=== PATIENT | female | born 1955 | race Caucasian/White ===

== ENCOUNTER 2024-11-05 07:52 | Outpatient (CLI) | payer MEDICARE, SELFPAY ==
--- OUTSIDE RECORDS SUMMARY | 2024-11-05 08:08 | XMS_ITS | Encounter Summary ---
Author Organization [facility] Address [address] [place] [address] Care Team Providers Care Equipment Superintendent Name Role Phone Jean Marie Churchill MD, Ginny Dong Primary Care Provider Elicia vailable Encounter Details Date Type Department Care Team (Latest Contact Info) Description 05/29/2007 Outpatient Historical HIS [facility] RAJ Rojo Jr., Ginny Dong MD NO ADDRESS ON FILE Other Screening Mammogram Social History Tobacco Use Types Packs/Day Years Used Date Smoking Tobacco: Never Assessed Comments Unknown Sex and Gender Information Value Date Recorded Sex Assigned at Not on file Legal Sex Female 3:53 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 Gender Identity Not on file Sexual Orientation Not on file documented as of this encounter Plan of Treatment Not on file documented as of this encounter Procedures Procedure Name Priority Date/Time Associated Diagnosis Comments MAMMO SCREEN BILAT W OR WO CAD Timed Study 05/29/2007 10:23 AM CDT documented in this encounter Results * MAMMO DIGITAL SCREEN BILAT (05/29/2007 10:23 AM CDT) Anatomical Region Laterality Modality Breast Bilateral Other 05/29/2007 10:2 3 AM CDT Narrative 05/29/2007 6:54 PM CDT [facility] [address], [place] [address] Admit Date: 05/29/2007 GRZEGORZ MARSHALL Sex: F Admit Prov: GINNY ROJO Date: 1955 Primary Care Prov: VARINDER FREIRE CMRN: [id number] Room: [facility] SSN: [id number] IMAGING SERVICES Ordering Prov: GINNY ROJO Accession Number: [id number] Interpretation BILATERAL SCREENING DIGITAL MAMMOGRAMS WITH COMPUTER ASSISTED DIAGNOSIS, 05/29/2007 Findings: The parenchyma is moderately dense bilaterally. There is no mass, malignant calcification, lymphadenopathy or other sign of malignancy. Summary: No mammographic evidence of malignancy. No change since 02/2006. Assessment BIRADS: 1-Negative Recommendation: Normal interval follow-up Dictated by: IZAIAH RANGEL Electronically signed by: IZAIAH RANGEL 05/29/2007 18:54 Transcribed: 05/29/2007 16:28 DKT Procedure Note Izaiah Rangel MD - 05/29/2007 [facility] [address] [place], [place] [address] Admit Date: 05/29/2007 GRZEGORZ MARSHALL Sex: F Admit Prov: GINNY ROJO Date: 1955 Primary Care Prov: VARINDER FREIRE CMRN: [id number] Room: [facility] SSN: [id number] IMAGING SERVICES Ordering Prov: GINNY ROJO Interpretation BILATERAL SCREENING DIGITAL MAMMOGRAMS WITH COMPUTER ASSISTEDDIAGNOSIS, 05/29/2007 Findings: The parenchyma is moderately dense bilaterally. There is nomass, malignant calcification, lymphadenopathy or other sign ofmalignancy. Summary: No mammographic evidence of malignancy. No change since02/2006. Assessment BIRADS: 1-Negative Recommendation: Normal interval follow-up Dictated by: IZAIAH RANGEL Electronically signed by: IZAIAH RANGEL 05/29/2007 18:54 Transcribed: 05/29/2007 16:28 DKT us Ginny Rojo Jr., MD MAMMO ORDERABLES Final Res ult documented in this encounter Visit Diagnoses Diagnosis Other screening mammogram documented in this encounter Care Teams Equipment Superintendent Relationship Specialty Start Date End Date Ginny Rojo Jr., MD NO ADDRESS ON FILE PCP - General 02/19/03 documented as of this encounter
--- OUTSIDE RECORDS SUMMARY | 2024-11-05 08:08 | XMS_ITS | Encounter Summary ---
Author Organization [facility] Address [address] [place] [address] Care Team Providers Care Freight Shipping Agent Name Role Phone Jean Marie Churchill MD, Ginny Dong Primary Care Provider Elicia vailable Encounter Details Date Type Department Care Team (Latest Contact Info) Description 02/17/2006 Outpatient Historical HIS [facility] Ginny Dubose Jr., MD NO ADDRESS ON FILE Other Screening Mammogram (Primary Dx) Social History Tobacco Use Types Packs/Day Years Used Date Smoking Tobacco: Never Assessed Comments Unknown Sex and Gender Information Value Date Recorded Sex Assigned at Not on file Legal Sex Female 3:53 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
--- OUTSIDE RECORDS SUMMARY | 2024-11-05 08:08 | XMS_ITS | Clinical Summary ---
Author Organization [facility] field Address [address] [place] [phone] Phone Care Team Providers Care Fitness Consultant Name Role Phone Jean Marie Churchill MD, Remedios Dong Primary Care Provider Elicia vailable Allergies No known active allergies Medications esomeprazole (NEXIUM) 40 mg Capsule, Delayed Release(E.C.) Take 40 mg by mouth daily before breakfast. Active phentermine (ADIPEX P) 37.5 mg tablet 03/26/2017 Active dexlansoprazole (DEXILANT) 60 mg Delayed Release capsule Take 60 mg by mouth daily. Active Active Problems Problem Noted Date Diagnosed Date NAFLD (nonalcoholic fatty liver disease) 014 Overview (04/21/2013): Fat infilitration of MRCP done to evaluate for presence of retained CBD stone GERD (gastroesophageal reflux disease) 3 S/P laparoscopic cholecystectomy for gallstones 01/08/2013 Overview (04/21/2013): MRCP 01/2013 shows no sig biliary dilation or evidence for retained CBD stone Obesity 01/08/2013 Functional dyspepsia 01/06/2013 Overview (04/21/2013): EGD unrevealing. MRCP shows no evidence to suggest retained CBD stone. Functional nausea and vomiting 01/06/2013 Overview (04/21/2013): EGD unrevealing, MRCP shows NAFLD but no evidence for retained CBD stone or other structural/inflammatory explanation for symptoms. Personal history of colonic polyps 1.2 cm adenom a in 06/200401/06/2013 Overview (01/06/2013): Last follow up 10/2010 showed 4 mm hyperplastic rectal polyp. 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 Gender Identity Not on file Sexual Orientation Not on file Occupation Industry Job Start Date Job End Date Not on file Not on file Not on file Not on file Last Filed Vital Signs Vital Sign Reading Time Taken Comments Blood Pressure 111/82 06/01/2017 11:06 AM CDT Pulse 83 06/01/2017 11:06 AM CDT Temperature 36.2 C (97.1 F) 06/01/2017 10:55 AM CDT Respiratory Rate 18 06/01/2017 11:06 AM CDT Oxygen Saturation 99% 06/01/2017 11:06 AM CDT Inhaled Oxygen Concentration - - Weight 102.5 kg (226 lb) 05/31/2017 1:27 PM CDT Height 167.6 cm (5' 6) 05/31/2017 1:27 PM CDT Body Mass Index 36.48 05/31/2017 1:27 PM CDT Plan of Treatment Health Maintenance Due Date Last Done Comments DTAP/TDAP/TD VACCINES (1 - Tdap) 06/28/1975 FIT-DNA Q 3 years 2001 FIT/FOBT Q 1 year 2001 Flex Sig/CT Colonography Q 5 years 2001 PNEUMOCOCCAL VACCINE 50+ YEA RS (1 of 1 - PCV) 2006 ZOSTER VACCINE (1 of 2) 2006 BREAST CANCER SCREENING 05/28/2008 05/29/2007 RSV VACCINE (60+ or ) (1 - Risk 60-74 years 1-dose series) 2016 OSTEOPOROSIS SCREENING 2021 COLORECTAL SCREENING 06/01/2022 06/01/2017, 06/01/2017, 10/22/2010, Additional history exists Colorectal Cancer Screening 06/01/2022 INFLUENZA VACCINE (#1) 2024 Procedures Procedure Name Priority Date/Time Associated Diagnosis Comments ENDOSCOPY, COLON, SCREENING Routine 10/22/2010 MAMMO SCREEN BILAT W OR WO CAD Timed Study 05/29/2007 10:23 AM CDT from Last 3 Months or Most Recently Relevant to Health Maintenance Results * (ABNORMAL) ENDOSCOPY, COLON, SCREENING (10/22/2010) us Jacinto Mosqueda MD GI PROCEDURE ORDERABLES Edited [facility] * MAMMO DIGITAL SCREEN BILAT (05/29/2007 10:23 AM CDT) Anatomical Region Laterality Modality Breast Bilateral Other 05/29/2007 10:2 3 AM CDT Narrative 05/29/2007 6:54 PM CDT [facility] [address] [place], [place] [address] Admit Date: 05/29/2007 MARILYNCONNIE Sex: F Admit Prov: VALENTÍN ROJORYLEY Dong Date: 1955 Primary Care Prov: MOUNA VARINDER Early CMRN: [id number] Room: [facility] SSN: [id number] IMAGING SERVICES Ordering Prov: REMEDIOS ROJO Accession Number: [id number] Interpretation BILATERAL SCREENING DIGITAL MAMMOGRAMS WITH COMPUTER [...] Procedure Note Izaiah Rangel MD - 05/29/2007 [facility] [address] [place], [place] [address] Admit Date: 05/29/2007 CONNIE MARSHALL Sex: F Admit Prov: REMEDIOS ROJO Date: 1955 Primary Care Prov: VARINDER FREIRE CMRN: [id number] Room: [facility] SSN: [id number] IMAGING SERVICES Ordering Prov: REMEDIOS ROJO Letitia Interpretation BILATERAL SCREENING DIGITAL MAMMOGRAMS WITH COMPUTER ASSISTEDDIAGNOSIS, 05/29/2007 Findings: The parenchyma is moderately dense bilaterally. There is nomass, malignant calcification, lymphadenopathy or other sign ofmalignancy. Summary: No mammographic evidence of malignancy. No change since02/2006. Assessment BIRADS: 1-Negative Recommendation: Normal interval follow-up Dictated by: IZAIAH RANGEL Electronically signed by: IZAIAH RANGEL 05/29/2007 18:54 Transcribed: 05/29/2007 16:28 DKT Remedios Rojo Jr., MD MAMMO ORDERABLES Final Res ult from Last 3 Months or Most Recently Relevant to Health Maintenance Insurance [facility] BLUE ACCESS/TRUE BLUE PPO Advance Directives For more information, please contact: [phone] * Full Code (Latest Code Status on File) Date Activated Date Inactivated Comments 06/01/2017 9:50 AM 06/01/2017 1:25 PM * Full Code Date Activated Date Inactivated Comments 01/15/2013 10:08 AM 01/15/2013 2:28 PM Care Teams Fitness Consultant Relationship Specialty Start Date End Date Remedios Rojo Jr., MD NO ADDRESS ON FILE PCP - General 02/19/03
--- OUTSIDE RECORDS SUMMARY | 2024-11-05 08:08 | XMS_ITS | Encounter Summary ---
Author Organization [facility] Address [address] [place] [address] Care Team Providers Care Production Machinist Name Role Phone Jean Marie Churchill MD, Ginny Dong Primary Care Provider Elicia vailable Encounter Details Date Type Department Care Team (Latest Contact Info) Description 03/20/2004 Outpatient Historical HIS [facility] RAJ Aj Jr., Ginny Dong MD NO ADDRESS ON FILE SCREENING MAMM-MAILG NEOPL-OTHER (Primary Dx) Social History Tobacco Use Types Packs/Day Years Used Date Smoking Tobacco: Never Assessed Comments Unknown Sex and Gender Information Value Date Recorded Sex Assigned at Not on file Legal Sex Female 3:53 AM CLINICAL 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
--- OUTSIDE RECORDS SUMMARY | 2024-11-05 08:08 | XMS_ITS | Encounter Summary ---
Author Organization [facility] Address [address] [place] [address] Care Team Providers Care Relief Salesperson Name Role Phone Jean Marie Churchill MD, Ginny Dong Primary Care Provider Elicia vailable Encounter Details Date Type Department Care Team (Latest Contact Info) Description 02/19/2003 Outpatient Historical HIS [facility] RAJ Aj Jr., Ginny Dong MD NO ADDRESS ON FILE SCREENING MAMM-MAILG NEOPL-OTHER (Primary Dx) Social History Tobacco Use Types Packs/Day Years Used Date Smoking Tobacco: Never Assessed Comments Unknown Sex and Gender Information Value Date Recorded Sex Assigned at Not on file Legal Sex Female 3:53 AM NURSING ASSOC Gender Identity Not on file Sexual Orientation Not on file documented as of this encounter Plan of Treatment Not on file documented as of this encounter Visit Diagnoses Diagnosis Other screening mammogram- Primary documented in this encounter Care Teams Relief Salesperson Relationship Specialty Start Date End Date Ginny Aj Jr., MD NO ADDRESS ON FILE PCP - General 02/19/03 documented as of this encounter
--- OUTSIDE RECORDS SUMMARY | 2024-11-05 08:08 | XMS_ITS ---
Author Organization [facility] Address [address] [place] [address] Care Team Providers Care Border Patrol Officer Name Role Phone Charissa Raymundo NP Primary Care Provider [phone] Angel Montes De Oca MD Unavailable [phone] Active Problems Problem Noted Date Diagnosed Date Chest pain 04/09/2024 Assessment & Plan (04/09/2024 9:40 AM SECURITY TEST ENGINEER): EKG slightly changed from 1 month ago--frequent PVC's new, low voltage new. With symptoms, will be safe and get stress test. ASCVD risk score 7.7%. Palpitations may be contributing to sx, will need to consider MCT monitor. Hold Phentermine. Screening for colon cancer 02/08/2024 History of right breast cancer 03/16/2020 Overview (03/16/2020): Added automatically from request for surgery [id number] Breast asymmetry 02/14/2019 Overview (02/14/2019): Added automatically from request for surgery [id number] Scar contracture 02/14/2019 Overview (02/14/2019): Added automatically from request for surgery [id number] Bronchitis 01/08/2019 Cough 01/08/2019 Dysuria 01/08/2019 Knee pain 01/08/2019 Assessment & Plan (02/01/2024 4:17 PM SECURITY TEST ENGINEER): In need of knee replacement, needs to lose about 20 lbs first though per specialist. Will get updated labs, can trial Meloxicam if renal function in good shape. Shoulder pain 01/08/2019 Malignant neoplasm of breast 06/18/2018 Assessment & Plan (02/01/2024 4:16 PM SECURITY TEST ENGINEER): Patient has completed her 5 year surveillance and has been release from specialist. History of breast cancer 03/12/2018 Overview (03/12/2018): Added automatically from request for surgery [id number] Wasp sting 10/06/2016 NAFLD (nonalcoholic fatty liver disease) 014 Overview (01/08/2019): Overview: Fat infilitration of MRCP done to evaluate for presence of retained CBD stone GERD (gastroesophageal reflux disease) 3 Assessment & Plan (02/01/2024 4:15 PM SECURITY TEST ENGINEER): Stable on Omeprazole 10 mg daily Obesity 01/08/2013 S/P laparoscopic cholecystectomy 01/08/2013 Overview (01/08/2019): Overview: MRCP 01/2013 shows no sig biliary dilation or evidence for retained CBD stone Family history of colon cancer 01/06/2013 Functional dyspepsia 01/06/2013 Overview (01/08/2019): Overview: EGD unrevealing. MRCP shows no evidence to suggest retained CBD stone. Nausea and vomiting 01/06/2013 Overview (01/08/2019): Overview: EGD unrevealing, MRCP shows NAFLD but no evidence for retained CBD stone or other structural/inflammatory explanation for symptoms. Personal history of colonic polyps 01/06/2013 Overview (01/08/2019): Overview: Last follow up 10/2010 showed 4 mm hyperplastic rectal polyp. Repeat planned 10/2015 Current Treatment and Therapy Plans No current plan information found. Past Treatment and Therapy Plans No past plan information found. Lifetime Dose Tracking * Chemical Lifetime Dose Automatic Entry Manual Entr y Fluoro Time 2.8 minutes 2.8 minutes 0 minutes Air kerma at the reference point (Ka,r) 14 mGy 1 4 mGy 0 mGy
--- OUTSIDE RECORDS SUMMARY | 2024-11-05 08:08 | XMS_ITS | Clinical Summary ---
Author Organization [facility] Address [address] [place] [address] Care Team Providers Care Supervisor Benzene Refining Name Role Phone Charissa Raymundo NP Primary Care Provider [phone] Angel Montes De Oca MD Unavailable [phone] Allergies No known active allergies Medications DEXILANT 60 mg capsuleIndicati ons:Treatment of Non-Bleeding Gastric Disorder Take 60 mg by mouth every morning 8 Active acetaminophen (TYLENOL) 500 mg tablet Take 1 tablet (500 mg total) by mouth every 6 (six) hours as needed for pain. 30 tablet 2 9 Active ergocalciferol (VITAMIN D) 50,000 unit capsuleIndicati ons:Vitamin D Deficiency,on Monday Take 50,000 Units by mouth once a week Active multivitamin capsuleIndicati ons:Vitamin Deficiency Prevention Take 1 capsule by mouth daily before breakfast Active ibuprofen (ADVIL,MOTRIN) 600 mg tablet Take 1 tablet (600 mg total) by mouth every 6 (six) hours 30 tablet 1 Active Additional Information Patient not taking.Reported on 02/01/2024 HYDROcodone-paul taminophen (NORCO) 5-325 mg per tabletIndicatio ns:Pain Take 0.5-1 tablets by mouth every 6 (six) hours as needed for pain (for breakthrough pain only. Don't take this medication if you don't need it.) 20 tablet 1 Active Additional Information Patient not taking.Reported on 02/27/2024 docusate sodium (DOK) 100 mg tabletIndicatio ns:constipation Take 1 tablet (100 mg total) by mouth 2 (two) times a day as needed for constipation 30 tablet 1 Active Additional Information Patient not taking.Reported on 02/01/2024 gabapentin (NEURONTIN) 300 mg capsule Take 1 capsule (300 mg total) by mouth nightly 30 capsule 1 Active Additional Information Patient not taking.Reported on 02/27/2024 omeprazole (PriLOSEC) 10 mg capsule Take 1 capsule (10 mg total) by mouth daily Active bisacodyl EC (DULCOLAX EC) 5 mg EC tabletIndicatio ns:constipation Take 1 tablet (5 mg total) by mouth daily as needed for constipation 4 tablet 4 Active glucosam-chondr -ywd6-W3-X-olivia 750-625-1,000 mg-mg-unit tablet Take by mouth Active meloxicam (MOBIC) 15 mg tablet Take 1 tablet (15 mg total) by mouth daily Active Active Problems Problem Noted Date Diagnosed Date Chest pain 04/09/2024 Assessment & Plan (04/09/2024 9:40 AM ORNAMENTAL IRONWORKER): EKG slightly changed from 1 month ago--frequent PVC's new, low voltage new. With symptoms, will be safe and get stress test. ASCVD risk score 7.7%. Palpitations may be contributing to sx, will need to consider MCT monitor. Hold Phentermine. Screening for colon cancer 02/08/2024 History of right breast cancer 03/16/2020 Overview (03/16/2020): Added automatically from request for surgery [id number] Breast asymmetry 02/14/2019 Overview (02/14/2019): Added automatically from request for surgery [id number] Scar contracture 02/14/2019 Overview (02/14/2019): Added automatically from request for surgery [id number] Bronchitis 01/08/2019 Cough 01/08/2019 Dysuria 01/08/2019 Knee pain 01/08/2019 Assessment & Plan (02/01/2024 4:17 PM ORNAMENTAL IRONWORKER): In need of knee replacement, needs to lose about 20 lbs first though per specialist. Will get updated labs, can trial Meloxicam if renal function in good shape. Shoulder pain 01/08/2019 Malignant neoplasm of breast 06/18/2018 Assessment & Plan (02/01/2024 4:16 PM ORNAMENTAL IRONWORKER): Patient has completed her 5 year surveillance and has been release from specialist. History of breast cancer 03/12/2018 Overview (03/12/2018): Added automatically from request for surgery [id number] Wasp sting 10/06/2016 NAFLD (nonalcoholic fatty liver disease) 014 Overview (01/08/2019): Overview: Fat infilitration of MRCP done to evaluate for presence of retained CBD stone GERD (gastroesophageal reflux disease) 3 Assessment & Plan (02/01/2024 4:15 PM ORNAMENTAL IRONWORKER): Stable on Omeprazole 10 mg daily Obesity [...] mm hyperplastic rectal polyp. Repeat planned 10/2015 Immunizations Immunization Administration Dates Next Due Influenza, Quadrivalent, Split, Intramuscular Influenza, Trivalent, High D ose, Split, Preservative Free, Intramuscular 02/01/2024 Influenza, Unspecified 11/26/2017 Pneumococcal Conjugate Pcv20 06/09/2023 ZOSTER Recombinant 06/09/2023,07/01/2022 Surgical History Surgery Date Site/Laterality Comments BREAST BIOPSY 11/09/2017 Right LAPAROSCOPIC CHOLECYSTECTOMY 02/13/1999 - 02/13/2000 COLONOSCOPY 02/13/2018 - 02/12/2019 ENDOMETRIAL ABLATION W/ NOVASURE 0 - 02/13/2000 MASTECTOMY 02/13/2017 - 02/12/2018 FLUID DRAIN SOFT TISSUE 08/06/2018 N/A ABSCESS CATHETER INJECTION 08/17/2018 N/A ABSCESS CATHETER INJECTION 08/27/2018 N/A BREAST RECONSTRUCTION 12/14/2017 - 01/12/2018 UPPER GASTROINTESTINAL ENDOSCOPY 3 - 02/12/2013 MENISCUS SURGERY 02/13/2014 - 02/12/2015 Right Torn meniscus MENISCUS SURGERY 02/13/2018 - 02/12/2019 Left VAGINAL DELIVERY x2 Medical History Medical History Date Comments GERD (gastroesophageal reflux disease) Arthritis Overweight Breast cancer (HCC) both 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 Colon polyp Family History Medical History Relation Name Comments Throat cancer Brother 1 Liver cancer Brother 2 Lung cancer Father Lung cancer Maternal Grandfather Breast cancer Mother Breast cancer Sister 1 Colon cancer Sister 2 Cervical cancer Sister 3 Anesthesia problems Neg Hx Relation Name Status Comments Brother 1 Alive 53 when diagnos ed Brother 2 Alive just diagnosed at age 68 with liver cancer Father (Age 47) 45 when di agnosed Maternal Grandfather (Age 80) 80 when diagnosed Mother (Age 90) 85 when di agnosed Sister 1 Alive 69 when diagnos ed Sister 2 (Age 53) 52 when di agnosed Sister 3 (Age 66) 64 when di agnosed Social History Tobacco Use Types Packs/Day Years Used Date Smoking Tobacco: Never Smokeless Tobacco: Never Alcohol Use Standard Drinks/Week Comments Yes 0 (1 standard drink = 0.6 oz pur e alcohol) AUDIT-C Answer Date Recorded Q1: How often do you have a drink containing alcohol? 2-4 times a month 02/27/2024 Q2: How many drinks containi ng alcohol do you have on a typical day when you are drinking? Patient does not drink Q3: How often do you have si x or more drinks on one occasion? Never 02/27/2024 PHQ-2 Answer Date Recorded PHQ-2 Total Score (If total score is 3 or more points, staff should administer the PHQ-9) 0 04/09/2024 Personal Safety Answer Date Recorded Have you ever been in or are you currently in a harmful physical or emotional relationship or is someone making you feel afraid or unsafe? Denies 02/27/2024 Comments No Sex and Gender Information Value Date Recorded Sex Assigned at Not on file Legal Sex Female 3:04 PM ORNAMENTAL IRONWORKER Gender Identity Female 02/26/2019 4:52 PM ORNAMENTAL IRONWORKER Sexual Orientation Not on file Obstetrics History Last Filed Vital Signs Vital Sign Reading Time Taken Comments Blood Pressure 124/88 04/09/2024 8:55 AM ORNAMENTAL IRONWORKER Pulse 59 04/09/2024 8:55 AM ORNAMENTAL IRONWORKER Temperature 36.9 C (98.4 F) 04/09/2024 8:55 AM ORNAMENTAL IRONWORKER Respiratory Rate 17 02/27/2024 9:18 AM ORNAMENTAL IRONWORKER Oxygen Saturation 95% 04/09/2024 8:55 AM ORNAMENTAL IRONWORKER Inhaled Oxygen Concentration - - Weight 110.7 kg (244 lb) 04/09/2024 8:55 AM ORNAMENTAL IRONWORKER Height 167.6 cm (5' 6) 04/09/2024 8:55 AM ORNAMENTAL IRONWORKER Body Mass Index 39.38 04/09/2024 8:55 AM ORNAMENTAL IRONWORKER Plan of Treatment Health Maintenance Due Date Last Done Comments Osteoporosis Screening-Bone Density Scan 1955 DTaP/Tdap/Td Vaccine (1 - Tdap) 06/28/1967 Hepatitis B Screening 1974 Well Visit 65+ 2021 Covid-19 Vaccine (4 - 2024-2 6 season) 2024 12/17/2021, 05/19/2020, 04/27/2020 Influenza Vaccine (#1) 2024 , 11/26/2017, 11/25/2015 Fall Risk Assessment 02/26/2025 02/27/2024, 02/01/20 24 Depression Screening 04/09/2025 04/09/2024, 02/01/20 24 Colon Cancer Screening-Colonoscopy 02/26/2029 02/27/2024, 01/31/2021, 06/01/2017 Breast Cancer Screening-Mammogram Discontinued 008 Pneumococcal vaccine 65+ Completed 06/09/2023 Zoster Vaccine Completed 06/09/2023, 07/01/2022 Hepatitis C Screening Completed 02/26/2024 Colon Cancer Screening-CT Colonography Discontinued 02/27/2024 Colon Cancer Screening-DNA Stool Discontinued 02/26/19 Colon Cancer Screening-FIT Discontinued 02/27/2024 Colon Cancer Screening-Sigmoidoscopy Discontinued 02/13 Medical Devices Implanted Type Area Medical Writer Device Identifier Shelf Expiration Date Model / Serial / Lot Musculoskeletal Transplant [id number] Flexhd L20 Cm X W16 Cm Hydrate; Pliable Thk.8-1.7 Mm; Thick Graft - [id number] - [id number] Implanted:Qty: 1 on 01/12/2018 by Cristino Frazier II, MD at [facility] Other - see comments Left: Breast Musculoskeletal Transplant 03/17/2020 [id number] / [id number] / 0 Description:Flex HD Musculoskeletal Transplant [id number] Flexhd L20 Cm X W16 Cm Hydrate; Pliable Thk.8-1.7 Mm; Thick Graft - [id number] - [id number] Implanted:Qty: 1 on 01/12/2018 by Cristino Frazier II, MD at [facility] Other - see comments Right: Breast Musculoskeletal Transplant 03/17/2020 [id number] / [id number] / 0 Description:Flex HD [employer] Ssx-650 Natrelle Inspira Smooth Shell Surface Extra Full Profile Implant Latex Free - [id number] - [id number] Implanted:Qty: 1 on 10/31/2018 by Cristino rFazier II, MD at [facility] Right: Breast [employer] [id number] 05/28/2023 SSX-650 / [id number] / [employer] Ssx-650 Natrelle Inspira Smooth Shell Surface Extra Full Profile Implant Latex Free - [id number] - [id number] Implanted:Qty: 1 on 10/31/2018 by Cristino Frazier II, MD at [facility] Left: Breast [employer] [id number] 06/25/2023 SSX-650 / [id number] / Explanted Type Area Medical Writer Device Identifier Shelf Expiration Date Model / Serial / Lot [employer] 133mx-15-T -Natrelle Biocell Magna-Site [id number] Style 133mx With Tab Breast - [id number] - [id number] Implanted:Qty : 1 on 01/12/2018 by Cristino Frazier II, MD at [facility] Explanted:Qty : 1 on 03/13/2018 at [facility] Other - see comments Left: Breast [employer] 03/29/2021 133MX-15- T / [id number] / 0 Description:Tissue Spring Tester [employer] 133mx-15-T -Natrelle Bi[employer]ell Magna-Site [id number] Style 133mx With Tab Breast - [id number] - [id number] Implanted:Qty : 1 on 01/12/2018 by Cristino Frazier II, MD at [facility] Medicine Explanted:Qty : 1 on 03/13/2018 at [facility] Other - see comments Right: Breast [employer] 11/06/2021 133MX-15- T / [id number] / 0 Description:Tissue Spring Tester [employer] 133mx-14 Natrelle Biocell Magna-Site [id number] Style 133mx Textured Breast P - [id number] - [id number] Implanted:Qty : 1 on 03/13/2018 at [facility] Explanted:Qty : 1 on 10/31/2018 by Cristino Frazier II, MD at [facility] Left: Breast [employer] 06/06/2021 133MX-14 / [id number] / [employer] 133mx-14 Natrelle Biocell Magna-Site [id number] Style 133mx Textured Breast P - [id number] - [id number] Implanted:Qty : 1 on 03/13/2018 at [facility] Explanted:Qty : 1 on 10/31/2018 by Cristino Frazier II, MD at [facility] Right: Breast [employer] 09/15/2021 133MX-14 / [id number] / Procedures Procedure Name Priority Date/Time Associated Diagnosis Comments COLONOSCOPY 02/27/2024 8:23 AM ORNAMENTAL IRONWORKER HEPATITIS C ANTIBODY Routine 02/26/2024 11:02 AM ORNAMENTAL IRONWORKER Encounter for hepatitis C screening test for low risk patient from Last 3 Months or Most Recently Relevant to Health Maintenance Results * Colonoscopy (02/27/2024 8:23 AM ORNAMENTAL IRONWORKER) Anatomical Region Laterality Modality Other Narrative Procedure Note Jv Clemente MD - 02/27/2024 8:23 AM CST [facility] GI ENDOSCOPY Patient Name: Connie Marshall Procedure Date: 02/27/2024 8:23 AM Date of : 1955 Admit Type: Outpatient Age: 68 Gender: Female Attending MD: Jv Clemente M.D. Room: [facility] ENDOSCOPY ROOM 06 Note Status: Finalized Procedure: Colonoscopy Indications: High risk colon cancer surveillance: Personalhistory of colonic polyps, Family history of colon cancer Referring MD: Providers: Jv Clemente M.D. Medicines: Monitored Anesthesia Care Complications: No immediate complications. Estimated Blood Loss: Estimated blood loss: none. Procedure: Pre-Anesthesia Assessment: - Prior to the procedure, a History and Physicalwas performed, and patient medications and allergieswere reviewed. The risks and benefits of the procedureand the sedation options and risks were discussed withthe patient. All questions were answered and informed consent was obtained. Patient identification and proposed procedure were verified. After reviewingthe risks and benefits, the patient was deemed in satisfactory condition to undergo the procedure.The anesthesia plan was to use monitored anesthesiacare (MAC). Immediately prior to administration of medications, the patient was re-assessed foradequacy to receive sedatives. The heart rate, respiratory rate, oxygen saturations, blood pressure, adequacyof pulmonary ventilation, and response to care were monitored throughout the procedure. The physical status of the patient was re-assessed after the procedure. The benefits, risks and alternatives of theprocedure and sedation were discussed and informed consentwas obtained. All questions were answered. Please referto the signed informed consent document in the medical record. The scope was passed under direct vision.The Colonoscope was introduced through the anus and advanced to the cecum, identified by appendiceal orifice and ileocecal valve. The colonoscopy was performed without difficulty. The patient tolerated the procedure well. The quality of the bowel preparation was good. Scope withdrawal time was 13 minutes. Prep was administered in a split dose. Findings: The perianal and digital rectal examinations were normal. A diminutive polyp was found in the cecum. The polyp was removed witha cold biopsy forceps. Resection and retrieval were complete. A diminutive polyp was found in the ascending colon. The polyp was removed with a cold biopsy forceps. Resection and retrieval were complete. A diminutive polyp was found in the transverse colon. The polyp was removed with a cold biopsy forceps. Resection and retrieval were complete. Two polyps were found in the sigmoid colon. The polyps werediminutive in size. These polyps were removed with a cold biopsy forceps.Resection and retrieval were complete. Multiple medium-mouthed diverticula were found in the sigmoidcolon. Non-bleeding internal hemorrhoids were found during retroflexion. The hemorrhoids were small. The exam was otherwise without abnormality. Impression: - One diminutive polyp in the cecum, removed with a cold biopsy forceps. Resected and retrieved. - One diminutive polyp in the ascending colon,removed with a cold biopsy forceps. Resected andretrieved. - One diminutive polyp in the transverse colon, removed with a cold biopsy forceps. Resected and retrieved. - Two diminutive polyps in the sigmoid colon,removed with a cold biopsy forceps. Resected andretrieved. - Diverticulosis in the sigmoid colon. - Non-bleeding internal hemorrhoids. - The examination was otherwise normal. Recommendation: - Patient has a contact number available for emergencies. The signs and symptoms of potential delayed complications were discussed with thepatient. Return to normal activities tomorrow. Written discharge instructions were provided to thepatient. - High fiber diet. - Continue present medications. - Await pathology results. - Repeat colonoscopy in 5 years for surveillance. Jv Clemente M.D. Jv Clemente M.D. 02/27/2024 8:51:34 AM . Number of Addenda: 0 Note Initiated On: 02/27/2024 8:23 AM Recognized by the [employer] for promoting quality in endoscopy Jv Clemente MD ENDOSCOPY PROCEDURES Final Resul t * Hepatitis C antibody Blood (02/26/2024 11:02 AM ORNAMENTAL IRONWORKER) Hep C Ab Nonreactive Nonreactive Comment: Interpretive Data Nonreactive: Antibodies to HCV not detected. Does NOT exclude the possibility of recent exposure to HCV. Equivocal: Equivocal for HCV antibodies. Supplemental molecular testing will be automatically performed to determine infection status in accordance with current CDC screening recommendations. Reactive: Positive for HCV antibodies. This may represent current or past HCV infection. Supplemental molecular testing will be automatically performed to determine current infection status in accordance with current CDC screening recommendations. Interpretive data was last revised on 2019. Blood 02/26/2024 11:0 2 AM ORNAMENTAL IRONWORKER 02/26/2024 5:56 PM ORNAMENTAL IRONWORKER Charissa Raymundo NP LAB MICROBIOLOGY - GENERAL ORDER ZELDA Final Result [address] [id number] [address] Department [place] [address] from Last 3 Months or Most Recently Relevant to Health Maintenance Insurance ANTHEM ACCESS ANTHEM ACCESS CHOICE BLUE ACCESS OOS ANTHEM ACCESS Advance Directives For more information, please contact: [phone] * Full Code (Latest Code Status on File) Date Activated Date Inactivated Comments 08/27/2018 8:38 AM 08/27/2018 1:53 PM * Full Code Date Activated Date Inactivated Comments 08/17/2018 9:53 AM 08/17/2018 3:53 PM * Full Code Date Activated Date Inactivated Comments 01/12/2018 3:58 PM 01/14/2018 3:20 AM Care Teams Supervisor Benzene Refining Relationship Specialty Start Date End Date Charissa Raymundo NP [address] [facility] [address] [place] [address] PCP - General Family Medicine 02/01/24 Angel Montes De Oca MD [address] [facility] [address] [facility] [address] [place] [address] Referring Physician Orthopedic Surgery 02/01/24
--- OUTSIDE RECORDS SUMMARY | 2024-11-05 08:09 | XMS_ITS | Encounter Summary ---
Author Organization [facility] Healthcare Address [address] [place] [address] Care Team Providers Care Tool Lapper Hand Name Role Phone Anjali Mattson MD Primary Care Provider + Freddie PALUMBO MD, Cristino Valle Unavailable Charissa Raymundo NP Primary Care Provider [phone] Angel Montes De Oca MD Unavailable [phone] Encounter Details Date Type Department Care Team (Late st Contact Info) Description 08/13/2018 Telephone [facility] Radiology [address] [place] [address] Nasim Correa Social History Tobacco Use Types Packs/Day Years Used Date Smoking Tobacco: Never Smokeless Tobacco: Never Alcohol Use Standard Drinks/Week Comments Yes 0 (1 standard drink = 0.6 oz pur e alcohol) couple drinks a month Comments No Sex and Gender Information Value Date Recorded Sex Assigned at Not on file Legal Sex Female 3:04 PM ELECTRICAL APPLIANCE SERVICER Gender Identity Female 02/26/2019 4:52 PM ELECTRICAL APPLIANCE SERVICER Sexual Orientation Not on file documented as of this encounter Plan of Treatment Not on file documented as of this encounter Visit Diagnoses Not on filedocumented in this encounter Care Teams Tool Lapper Hand Relationship Specialty Start Date End Date Anjali Mattson MD PCP - General 11/02/17 01/31/24 Charissa Raymundo NP [address] [facility] [address] [place] [address] PCP - General Family Medicine 02/01/24 Cristino Frazier II, MD Surgeon Plastic Surgery 02/26/18 01/31/24 Angel Montes De Oca MD [address] [facility] [address] [place] [address] Referring Physician Orthopedic Surgery 02/01/24 documented as of this encounter
--- OUTSIDE RECORDS SUMMARY | 2024-11-05 08:09 | XMS_ITS | Clinical Summary ---
Author Organization [facility] Address [facility] [place] [address] Care Team Providers Care Cash Posting Representative Name Role Phone Unavailable Primary Care Provider Unavailabl e Social History Tobacco Use Types Packs/Day Years Used Date Smoking Tobacco: Never Assessed Comments Unknown Sex and Gender Information Value Date Recorded Sex Assigned at Not on file Legal Sex Female 6:26 PM CDT Gender Identity Not on file Sexual Orientation Not on file Plan of Treatment Health Maintenance Due Date Last Done Comments Colorectal Cancer Screening Colonoscopy (10 Years) 1955 Hepatitis C 1974 DTaP, Tdap and Td Vaccines ( 1 - Tdap) 06/28/1975 Mammogram Screening 1996 Pneumococcal Vaccine: 50+ Ye ars (1 of 1 - PCV) 2006 Zoster Vaccines (1 of 2) 2006 Dexa Scan (General) 2021 COVID-19 Vaccine ( - 2023-2 5 season) 2024 RSV Immunization or 60+ Years (1 - 1-dose 75+ series) 06/28/2031 Meningococcal B Vaccine Aged Out No l onger eligible based on patient's age to complete this topic Meningococcal Vaccine Aged Out No jacque cynthia eligible based on patient's age to complete this topic RSV Immunizations Under 20 Months Aged Out No longer eligible based on patient's age to complete this topic
[2024-11-05 08:53] LABS: Hematocrit 44.4 % (37.0-47.0); Hemoglobin 14.6 g/dL (12.0-15.0); Immature Granulocyte Percent A 0.6 % (0-0.5); Lymphocytes Absolute Auto 2.03 K/mm3 (0.9-3.2); Mean Corpuscular HGB Conc 32.9 g/dl (32-36); Mean Corpuscular Hemoglobin 29.7 pg (26-34); Mean Corpuscular Volume 90.4 fl (80-100); Nucleated Red Blood Cells Absolute Auto 0.000 K/mm3 (0.0-0.012); Nucleated Red Blood Cells Perc 0.0 % (0.0-0.2); Platelet Count Result 302 k/mm3 (150-375); Red Blood Count 4.91 M/mm3 (4.2-5.4); White Blood Count 7.7 K/mm3 (4.5-10.0)
[2024-11-05 09:23] LABS: Albumin Level 4.4 g/dL (3.5-5.1); Anion Gap 6 mmol/L (4-12); Blood Urea Nitrogen 11 mg/dL (7-17); Calcium 9.2 mg/dL (8.4-10.2); Carbon Dioxide 28 mmol/L (22-30); Chloride 102 mmol/L (98-107); Estimated Glomerular Filt Rate > 60; Glucose 91 mg/dL (65-110); Potassium 4.8 mmol/L (3.4-5.0); Sodium 136 mmol/L (137-145)
[2024-11-05 09:50] LABS: Hemoglobin A1C 5.4 % (<5.7)
== END 2024-11-05 07:53 | disposition home or self-care (01) ==
PROVIDERS: PCP Nurse Practitioner Family; Visit Provider Orthopaedic Surgery
DX: Z01.812 Encounter for preprocedural laboratory examination (principal); M17.0 Bilateral primary osteoarthritis of knee
CPT/HCPCS: 80048; 80307; 82040; 83036; 85025; 87081

== ENCOUNTER 2024-11-25 00:38 | Day surgery (SDC) | payer MEDICARE, SELFPAY ==
[2024-11-05 08:08] VITALS: BP 152/86; PULSE 86; RESP 16; TEMP 36.9; O2SAT 99; BMI 35.8
--- NOTE | 2024-11-05 08:29 | PC.NURSE ---
[facility] has started construction of its new state of the art ER which will open Spring 2026. With this, we anticipate parking may be a challenge for some our surgical patients and families. Parking spaces are limited but are available for all Surgical, obstetrics, and ER patients sharing this lot. If you arrive and find you are having a hard time finding a parking space, please note that we understand the challenges, please drive around the hospital and park near Hospital Entrance [address]. When you enter this entrance, you can ask a volunteer to direct or take you back to the surgical waiting area to check in. We appreciate everyone?s understanding of these expected challenges while we build for your future. Report to the Outpatient Waiting Room, entrance under the green pavilion located off [address], at time 0600am__ on date __11/25/24 . Planned Procedure Time: __0730am .? Time changes happen often and if your time is changed the preop area will call you the afternoon before. - You and your visitor will be asked to self-screen and do not enter if you have any COVID symptoms. Please call surgeon if you need to reschedule. - A mask is optional within the hospital at this time. Patients may have clear liquids (water, carbonated beverages, clear teas, apple juice) until 3 hours prior to surgery with a maximum of 20 ounces. - No food from midnight until time of surgery and no smoking, or chewing tobacco (or any form of nicotine). No chewing gum, candy or mints. (04:30am) Take only the following medications with a SIP of water on the morning of surgery: Hydrocodone if needed DO NOT STOP ANY OF YOUR OTHER PRESCRIPTION MEDICATIONS PRIOR TO SURGERY EXCEPT THE FOLLOWING Hold all vitamins and supplements for [address] Michaels Medications to discontinue per physician Tirzepatide for [address] Michaels, Date of last dose is 11/14/24 Medications to discontinue per physician Meloxicam, Aspirin, NSAIDS for [address] Michaels. Date to take last dose____11/17/24 Please no make-up, nail luxembourgish, hairspray, perfume, deodorant, or body powder the day of surgery.? No jewelry (including any body piercings) or valuables the day of surgery, leave them at home.? Please take a shower or bath the night before, or the morning of, surgery with an antibacterial soap GOLD DIAL.?HIBICLEANSE PER DR MICHAELS. Wear comfortable, loose fitting clothing.Bring overnight bag, walker, good shoes, cell phone/Chrgr - Jewelry must be removed prior to entering the operating room.? Rings and piercings that are not removed may be cut off. - The hospital will not accept responsibility for valuables.? - Please leave all valuables, including medications, at home the day of surgery. If you are going home after surgery, a licensed helper driver must drive you home.? - NO public transportation without another adult if you receive anesthesia. - We recommend that an adult stay with you for 24 hours following discharge. - We also recommend that you do not drive, make important decision, drink alcoholic beverages, or take any drugs that were not prescribed by your health care provider for at least 24 hours after your discharge time. Follow any additional instructions given to you from your surgeon. Telephone instructions given to ___Patient and asked if any additional questions and then verbalized understanding. Patient advised to call surgeon office or pre surgery nurse liaison [phone] if any additional questions.
[2024-11-25] VITALS (11 sets, daily range): BP systolic 116–134; BP diastolic 67–82; PULSE 77–94; RESP 12–16; TEMP 36.2–37.8; O2SAT 92–100; BMI 36.2
--- NOTE | ~2024-11-25 | XR_ITS ---
EXAMINATION: [id number] DATE: 11/25/2024 11:23 INDICATION: Postoperative evaluation following left total knee arthroplasty. TECHNIQUE: Anteroposterior and lateral views of the left knee were obtained. COMPARISON: 10/25/2024 FINDINGS: Left total knee arthroplasty without patellar resurfacing appears well seated and in near anatomic alignment. No fractures identified. Expected postoperative subcutaneous and intra-articular gas. IMPRESSION: 1. Left total knee arthroplasty, negative for postoperative purposes. Reviewed, dictated and finalized at location A.
--- OUTSIDE RECORDS SUMMARY | 2024-11-25 00:42 | XMS_ITS | Data Portability ---
Author Organization [facility] [employer], Main Office Address [address] [place] [address] Assessment No assessment recorded. Plan of Treatment Reminders Order Date Submit Date Provider Last Modified By Organization Details Last Modified Time Details Appointments None recorded. Lab vitamin D3, 25-hydroxy, serum 2022 023 [email or web address] [id number] Not available 3 08:21:34 BMP, serum or plasma 2022 023 [email or web address] Not available 3 08:21:33 lipid panel, serum 2022 023 [email or web address] Not available 3 08:21:34 Referral None recorded. Procedures None recorded. Surgeries None recorded. Imaging None recorded. Medication Orders prednisone 20 mg tablet 2022 023 [facility] [address], [address], 3 12:33:12 phentermine 37.5 mg tablet 2022 023 SAMAN[facility] [address], [address], 3 12:33:14 cephalexin 500 mg tablet 2022 023 [email or web address] [facility] [address], [address], 3 15:47:55 Patient TargetsNo targets recorded. Patient InstructionsNo instructions recorded. Reason for Referral None Reported. Results Created Date Observation Date Name Description Value Unit Range Abnormal Flag Note LastModifiedBy Organization Detail LastModifiedTime 09/03/1909/02/2020 rapid strep group A, throa t STREP A negati ve Not Available [address] , [place], [address], 09/02/2020 16:25:40 09/03/19 21 09/02/2020 rapid flu (A+B) Flu A negati ve Not Available [address] , [place], [address], 09/02/2020 16:24:42 09/03/19 21 09/02/2020 rapid flu (A+B) Flu B negati ve Not Available [address] , [place], [address], 09/02/2020 16:24:42 09/03/19 21 09/02/2020 FOLAT E, SERUM /PLAS MA folate 14.2 NG/mL 2.76- Not Available [facility] (Lab) [address] [place], [address], 09/02/2020 22:19:32 09/03/19 21 09/02/2020 VITAM IN B12 (AVERY NAVI ) vb12 797 pg/mL 239-93 1 Not Available [facility] (Lab) [address] [place], [address], 09/02/2020 22:19:31 09/03/19 21 09/02/2020 CBC W/O DIFFE DARIUSZ AL white blood cells 5.1 x10'3 /uL 4.2-10 .8 Not Available [facility] (Lab) [address] [place], [address], 09/02/2020 21:55:16 09/03/19 21 09/02/2020 CBC W/O DIFFE RENTI AL red blood cells 5.20 x10'6 /uL 3.80-5 .20 Not Available [facility] (Lab) [address] [place], [address], 09/02/2020 21:55:16 09/03/19 21 09/02/2020 CBC W/O DIFFE RENTI AL hemoglobin 14.1 g/dL 12.0-1 5.6 Not Available [facility] (Lab) [address] [place], [address], 09/02/2020 21:55:16 09/03/19 21 09/02/2020 CBC W/O DIFFE RENTI AL hematocrit 43.6 % 35.7-4 5.7 Not Available [facility] (Lab) [address] [place], [address], 09/02/2020 21:55:16 09/03/19 21 09/02/2020 CBC W/O DIFFE RENTI AL mean red cell volume 83.8 fL 82.0-9 9.0 Not Available [facility] (Lab) [address] [place], [address], 09/02/2020 21:55:16 09/03/1909/02/2020 CBC W/O DIFFE RENTI AL mean red cell hemoglobin 27.1 pg 27.0-3 3.0 Not Available [facility] (Lab) [address] [place], [address], 09/02/2020 21:55:16 09/03/19 21 09/02/2020 CBC W/O DIFFE RENTI AL mean RBC HGB concentratio n 32.3 g/dL 31.0-3 6.0 Not Available [facility] (Lab) [address] [place], [address], 09/02/2020 21:55:16 09/03/19 21 09/02/2020 CBC W/O DIFFE RENTI AL red cell distribution width 15.1 % 11.8-1 5.5 Not Available [facility] (Lab) [address] [place], [address], 09/02/2020 21:55:16 09/03/19 21 09/02/2020 CBC W/O DIFFE RENTI AL platelets 219 x10'3 /uL 150-40 0 Not Available [facility] (Lab) [address] [place], [address], 09/02/2020 21:55:16 09/03/19 21 09/02/2020 CBC W/O DIFFE RENTI AL mean platelet volume 9.7 fL 9.0-12 .4 Not Available [facility] (Lab) [address] [place], [address], 09/02/2020 21:55:16 09/03/19 21 09/02/2020 TSH thyroid-stim ulating hormone 2.920 uIU/m L 0.465- 4.680 Not Available [facility] (Lab) [address] [place], [address], 09/02/2020 21:40:17 09/03/19 21 09/02/2020 COMPR EHENS BENSON METAB OLIC PANEL sodium 138 mmol/ L 137-14 5 Not Available [facility] (Lab) [address] [place], [address], 09/02/2020 21:31:02 09/03/19 21 09/02/2020 COMPR EHENS BENSON METAB OLIC PANEL potassium 4.1 mmol/ L 3.5-5. 1 Not Available [facility] (Lab) [address] [place], [address], 09/02/2020 21:31:02 09/03/19 21 09/02/2020 COMPR EHENS BENSON METAB OLIC PANEL chloride 103 mmol/ L 98-107 Not Available [facility] (Lab) [address] [place], [address], 09/02/2020 21:31:02 09/03/19 21 09/02/2020 COMPR EHENS BENSON METAB OLIC PANEL carbon dioxide 25 mmol/ L 22-30 Not Available [facility] (Lab) [address] [place], [address], 09/02/2020 21:31:02 09/03/19 21 09/02/2020 COMPR EHENS BENSON METAB OLIC PANEL agap 14.1 mmol/ L 14-22 Not Available [facility] (Lab) [address] [place], [address], 09/02/2020 21:31:02 09/03/19 21 09/02/2020 COMPR EHENS BENSON METAB OLIC PANEL glucose 124 mg/dL 70-99 high Not Available [facility] (Lab) [address] [place], [address], 09/02/2020 21:31:02 09/03/19 21 09/02/2020 COMPR EHENS BENSON METAB OLIC PANEL BUN 15 mg/dL 8-19 Not Available [facility] (Lab) [address] [place], [address], 09/02/2020 21:31:02 09/03/19 21 09/02/2020 COMPR EHENS BENSON METAB OLIC PANEL creatinine 0.82 mg/dL 0.66-1 .25 Not Available [facility] (Lab) [address] [place], [address], 09/02/2020 21:31:02 09/03/19 21 09/02/2020 COMPR EHENS BENSON METAB OLIC PANEL GFR >60 Refer ence Range : [facility] GFR Healt hy Adult : >60 mL/mi n/1.7 3 m2 Chron ic Kidne y Disea se: 15-60 mL/mi n/1.7 3 m2 Kidne y Failu re: <15/m L/min /1.73 m2 www.n iddk. nih.g ov MDRD study equat ion hasn' t been valid ated in child lance <18 yrs of age, pregn ant women , the elder ly >85 yrs of age, or in some racia l or ethni c subgr oups, suc as Hispa nics. Outsi de the valid ated alexander eters , estim ated GFR is less accur ate requi ring clini brittany judgm ent on a case by case basis . Clini brittany inter preta tion for other races and ages must be made by the clini mary kate . Futhe rmore , any of th e limit ation s with the use of serum creat inine relat ed to nutri connie l statu s o r medic ation usage hasn' t accou nted for the MDRD Study equat ion. For perso ns < 18 yrs of age, a pedia tric GFR calcu lator can be locat ed on the [facility] websi te: https ://chaka aguayo.o vanessa/pr ofess ional s/kdo qi/gf r_cal culat or Not Available [facility] (Lab) [address] [place], [address], 09/02/2020 21:31:02 09/03/19 21 09/02/2020 COMPR EHENS BENSON METAB OLIC PANEL alkaline phosphatase 109 U/L 38-126 Not Available [facility] (Lab) [address] [place], [address], 09/02/2020 21:31:02 09/03/19 21 09/02/2020 COMPR EHENS BENSON METAB OLIC PANEL alanine aminotransfe rase 88 U/L 0-35 high Not Available [facility] (Lab) [address] [place], [address], 09/02/2020 21:31:02 09/03/19 21 09/02/2020 COMPR EHENS BENSON METAB OLIC PANEL aspartate aminotransfe rase 70 U/L 15-37 high Not Available [facility] (Lab) [address] [facility] [place], [address], 09/02/2020 21:31:02 09/03/19 21 09/02/2020 COMPR EHENS BENSON METAB OLIC PANEL bilirubin, total 0.50 mg/dL 0.20-1 .30 Not Available [facility] (Lab) [address] [place], [address], 09/02/2020 21:31:02 09/03/19 21 09/02/2020 COMPR EHENS BENSON METAB OLIC PANEL calcium 8.7 mg/dL 8.4-10 .2 Not Available [facility] (Lab) [address] [place], [address], 09/02/2020 21:31:02 09/03/19 21 09/02/2020 COMPR EHENS BENSON METAB OLIC PANEL total protein 7.7 g/dL 6.3-8. 2 Not Available [facility] (Lab) [address] [place], [address], 09/02/2020 21:31:02 09/03/19 21 09/02/2020 COMPR EHENS BENSON METAB OLIC PANEL albumin 4.4 g/dL 3.0-4. 4 Not Available [facility] (Lab) [address] [place], [address], 09/02/2020 21:31:02 09/03/19 21 09/02/2020 COMPR EHENS BENSON METAB OLIC PANEL globulin 3.3 g/dL 2.6-4. 2 Not Available [facility] (Lab) [address] [place], [address], 09/02/2020 21:31:02 09/03/19 21 09/02/2020 COMPR EHENS BENSON METAB OLIC PANEL A/G ratio 1.3 ratio 1.0-2. 0 Not Available [facility] (Lab) [address] [place], [address], 09/02/2020 21:31:02 09/03/19 21 09/02/2020 VITAM IN D 25-HY DROXY vd25oh 60.7 NG/mL 30-100 Vitam in D Statu s: Defic ient: <20 ng/mL Insuf ficie nt: 20-29 ng/mL Suffi cient : 30-10 0 ng/mL Not Available [facility] ([facility]) [address] [place], [address], 09/02/2020 21:29:01 Result Notes None recorded. Problems Name Problem SNOMED Code Status Onset Date Resolution Date Notes Provider Name and Address Organization Details Recorded Time Gastroesop hageal reflux disease 827239425 Active Not Available [facility] 3 06:57:22 Knee pain Active Not Available [facility] 3 06:57:23 Bronchitis 93269790 Active Not Available [facility] 3 06:57:23 Obesity 293680557 Active Not Available [facility] 3 06:57:23 Pain of shoulder region 39703113 Active Not Available [facility] 3 06:57:23 Dysuria 05965888 Active Not Available [facility] 3 06:57:23 Cough 39933787 Active Not Available [facility] 3 06:57:23 Wasp sting 261526607 Active 2016 Not Available [facility] 3 06:57:22 Malignant neoplasm of breast 670442016 Active 2018 Not Available [facility] 3 06:57:23 Malignant neoplasm of female breast 875730503 Active 2018 Not Available [facility] 3 06:57:23 Puncture wound of right upper arm 0850668028514 9109 Active 2022 DOLORES Charles [address] [facility] [address], [place], [address] , [place] [employer] [facility] 3 15:34:29 Pain of right knee joint 3300029447821 00 Active 2022 Anjali Mattson MD [address], [place], [address] , [facility] [employer] [facility] 3 15:52:02 Vitamin D deficiency 66917747 Active 2022 Anjali Mattson MD [address], [place], [address] , [facility] [employer] [facility] 3 15:56:01 Problem Notes None recorded. Procedures Surgical History Date Name Laterality Status Provider Name and Address Organization Details Recorded Time laparoscopic cholecystectomy completed Not Available [facility] 04/13/2022 06:52:45 Imaging Results None recorded. Procedure Notes None recorded. Medical Equipment None Reported. Allergies No known drug allergies Medications Name Sig Start Date Stop Date Status Note LastModified by Organization Details LastModified Time cyclobenzap rine 10 mg tablet 06/18 completed Not Available Not Available Not Available doxycycline hyclate 100 mg capsule TAKE 1 CAPSULE BY MOUTH TWICE A DAY UNTIL FINISHED 10/12 completed Not Available Not Available Not Available Carafate 100 mg/mL oral suspension 02/26 completed Not Available Not Available Not Available azithromyci n 250 mg tablet TAKE 2 TABLETS (500 MG) BY ORAL ROUTE ONCE DAILY FOR 1 DAY THEN 1 TABLET (250 MG) BY ORAL ROUTE ONCE DAILY FOR 4 DAYS active Not Available Not Available No t Available fluconazole 150 mg tablet 04/14 completed Not Available Not Available Not Available hydrocodone 5 mg-acetamin ophen 325 mg tablet PLEASE SEE ATTACHED FOR DETAILED DIRECTION S 10/12 completed Not Available Not Available Not Available sucralfate 1 gram tablet Take 1 tablet 3 times a day by oral route. 06/18 completed Not Available Not Available Not Available prednisone 20 mg tablet TAKE 2 TABLETS BY MOUTH EVERY DAY FOR 5 DAYS active Not Available Not Available No t Available phentermine 37.5 mg tablet TAKE 1 TABLET BY MOUTH EVERY DAY active Not Available Not Available No t Available ciprofloxac in 500 mg tablet 11/13 completed Not Available Not Available Not Available sulfamethox azole 800 mg-trimetho prim 160 mg tablet Take 1 tablet every 12 hours by oral route for 7 days. active Not Available Not Available No t Available omeprazole 40 mg capsule,del ayed release Take 1 capsule every day by oral route. active Not Available Not Available No t Available tramadol 50 mg tablet Take 1 tablet every 6 hours by oral route as needed. 06/18 completed Not Available Not Available Not Available oxycodone-a cetaminophe n 5 mg-325 mg tablet 06/18 completed Not Available Not Available Not Available amoxicillin 875 mg tablet Take 1 tablet every 12 hours by oral route for 7 days. 05/24 completed Not Available Not Available Not Available oxycodone-a cetaminophe n 10 mg-325 mg tablet Take 1 tablet every 6 hours by oral route. active Not Available Not Available No t Available lorazepam 2 mg tablet 06/18 completed Not Available Not Available Not Available cephalexin 500 mg capsule Take 1 capsule twice a day by oral route for 7 days. 08/11 completed Not Available Not Available Not Available pantoprazol e 40 mg tablet,adelina yed release 1 po qday 03/21 completed Not Available Not Available Not Available esomeprazol e magnesium 40 mg capsule,del ayed release TAKE 1 CAPSULE DAILY 09/23 completed Not Available Not Available Not Available nitrofurant oin macrocrysta l 100 mg capsule Take 1 capsule twice a day by oral route for 7 days. 02/21 completed Not Available Not Available Not Available nystatin 100,000 unit/gram topical cream 02/26 completed Not Available Not Available Not Available ranitidine 150 mg tablet TAKE 1 TABLET TWICE A DAY NEEDED FOR HEARTBURN 10/12 completed Not Available Not Available Not Available oxycodone 5 mg capsule 06/18 completed Not Available Not Available Not Available docusate sodium 100 mg capsule TAKE 1 TABLET BY MOUTH TWICE A DAY NEEDED FOR CONSTIPAT ION 10/12 completed Not Available Not Available Not Available gabapentin 300 mg capsule TAKE 1 CAPSULE BY MOUTH NIGHTLY 10/12 completed Not Available Not Available Not Available cephalexin 500 mg tablet Take 1 tablet twice a day by oral route for 10 days. 08/11 completed Not Available Not Available Not Available codeine 10 mg-guaifene sin 100 mg/5 mL oral liquid Take 10 mL 3 times a day by oral route as needed for 5 days. active Not Available Not Available No t Available ergocalcife rol (vitamin D2) 1,250 mcg (50,000 unit) capsule TAKE 1 CAPSULE EVERY WEEK 08/11 completed Not Available Not Available Not Available ibuprofen 600 mg tablet TAKE 1 TABLET BY MOUTH EVERY 6 HOURS 10/12 completed Not Available Not Available Not Available methylpredn isolone 4 mg tablets in a dose pack take po as directed on label 01/17 completed Not Available Not Available Not Available diazepam 5 mg tablet 06/18 completed Not Available Not Available Not Available Denta 5000 Plus 1.1 % cream 02/26 completed Not Available Not Available Not Available nitrofurant oin monohydrate /macrocryst als 100 mg capsule 10/06 completed Not Available Not Available Not Available ProAir HFA 90 mcg/actuati on aerosol inhaler Inhale 2 puffs every 4 hours by inhalatio n route. 05/24 completed Not Available Not Available Not Available Gavilyte-C 240 gram-22.72 gram-6.72 gram-5.84 gram oral solution 06/18 completed Not Available Not Available Not Available Dexilant 60 mg capsule, delayed release TAKE 1 CAPSULE DAILY 08/11 completed Not Available Not Available Not Available Vitals Date Recorded Body weight Body temperature Heart rate Oxygen saturation Oxygen saturation in Arterial blood by Pulse oximetry Systolic And Diastolic Provider Name and Address Organization Details Last Updated DateTime 3 977602. 09 g 98.1 [degF] 85 /min 97 % 97 % 132/88 mm[Hg] Meghan Kohli RN [facility] [employer] [facility] 3 15:23:59 Date Recorded Body weight Body temperature Heart rate Oxygen saturation Oxygen saturation in Arterial blood by Pulse oximetry Systolic And Diastolic Provider Name and Address Organization Details Last Updated DateTime 3 219406. 87 g 97.3 [degF] 89 /min 97 % 97 % 136/84 mm[Hg] Quyen Newton RN [facility] [employer] [facility] 3 15:31:21 Date Recorded Body mass index (BMI) Body height Oxygen saturation Oxygen saturation in Arterial blood by Pulse oximetry Heart rate Body temperature Body weight Systolic And Diastolic Provider Name and Address Organization Details Last Updated DateTime 1 37.1 kg/m2 167.64 cm 98 % 98 % 105 /min 96.9 [degF] 641032. 25 g 130/72 mm[Hg] Not Available [facility] 3 06:54:53 Date Recorded Body mass index (BMI) Body height Oxygen saturation Oxygen saturation in Arterial blood by Pulse oximetry Heart rate Body temperature Body weight Systolic And Diastolic Provider Name and Address Organization Details Last Updated DateTime 1 35.2 kg/m2 167.64 cm 94 % 94 % 81 /min 97.3 [degF] 47084.1 4 g 126/70 mm[Hg] Not Available [facility] 3 06:54:53 Social History Question Answer Notes LastModified by [employer] Details LastModified Time Tobacco Smoking Status Never Smoker Not Available [facility] 04/13/2022 06:52:31 What Is Your Level Of Caffeine Consumption? Occasional [id number] Information not available 04/13/2022 How Much Tobacco Do You Chew? None [id number] Information not available 04/13/2022 In The 14 Days Before Symptom Onset, Have You Had Close Contact With A Laboratory-confirm ed COVID-19 While That Case Was Ill? No [id number] Information not available 04/13/2022 In The 14 Days Before Symptom Onset, Have You Had Close Contact With A Person Who Is Under Investigation For COVID-19 While That Person Was Ill? No [id number] Information not available 04/13/2022 What Type Of Diet Are You Following? REGULAR [id number] Information not available 04/13/2022 What Was The Date Of Your Most Recent Tobacco Screening? 08/11/2022 [email or web address] Information not available 08/11/2022 Are You Passively Exposed To Smoke? No [id number] Information not available 04/13/2022 Sex: Unknown Functional Status Question Answer Note LastModified by [employer] Details LastModified Time What is your level of alcohol consumption? None [id number] Information not available 04/13/2022 Do you or have you ever used smokeless tobacco? Never used smokeless tobacco [id number] Information not available 04/13/2022 Do you or have you ever used e-cigarettes or vape? Never used electronic cigarettes [id number] Information not available 04/13/2022 What is your exercise level? None [id number] Information not available 04/13/2022 Mental Status Question Answer Note LastModified by Organization D etails LastModified Time Do you feel stressed (tense, restless, nervous, or anxious, or unable to sleep at night)? [id number] [email or web address] Information not available 07/12/2022 Family History Relationship Description Onset Age of this Age Resolved Age Notes LastModified by Organization Details LastModified Time Father Malignant neoplasm of lung [id number] Not available 04/13/2022 06:52:47 Mother Malignant neoplasm of breast [id number] [id number] Not available 04/13/2022 06:52:47 Sister Malignant neoplasm of breast [id number] Not available 04/13/2022 06:52:47 Sister Malignant neoplasm of colon 52 [id number].602 [id number] Not available 04/13/2022 06:52:47 Brother Malignant neoplasm of liver [id number].209 [id number] Not available 04/13/2022 06:52:47 Medical History No medical history recorded. Gynecological HistoryNo gynecological history recorded. Obstetrics History GPAL:G 0 P 0 0 0 0 Immunizations Vaccine Type Date Status Note Provider Nam e and Address Organization Details Recorded Time Influenza, split virus, quadrivalent, preservative 6 completed Not Available [facility] 04/13/2022 07:03:03 Past Encounters Encounter ID Performer Location Encounter Start Date Encounter Closed Date Diagnosis/Indication Diagnosis SNOMED-CT Code Diagnosis ICD10 Code Diagnosis IMO Codes Diagnosis Note [id number] Anjali Mattson MD [facility] [place] [address] [place] [address] 09/02/2020 00:00:00 09/02/2020 18:15:39 [id number] Anjali Mattson MD [facility] [place] [address] [place] [address] 10/12/2020 00:00:00 10/12/2020 08:58:26 [id number] DOLORES Charles [facility] [place] [address] [place] [address] 07/12/2022 15:14:48 07/12/2022 18:30:33 Puncture wound of right upper arm 8713100978 6332824 S41.131A New problemApp ears to be healing well. Since pt leaving town this weekend, will give rx for abx. Pt to start if area becomes more red, swollen, or shows any other s/s of infection. Advised to apply YAEL wrap to provide compressio n/support to the area. [id number] Anjali Mattson MD [facility] [place] [address] [facility] [address] [facility] [place] [address] 08/11/2022 15:24:16 08/11/2022 16:03:25 Adult health examination 459024533 Z00.00 Z13.[address] Mosqueda for colonoscop y, goes q5 years due to family hxGot shingrix vaccine #1, will return for #2Will get prevnar 20 at pharmacyFl u vaccine yearly, covid booster per cdc guidelines Pap normal 10/03, repeat in 2025She is 5 years s/p breast cancer, has been released by her oncologist , no f/u needed if no new s/sFasting labs orderedDEX A repeat next year Dietary ma nagement surveillance 230009411 Z71.3 restart phentermin e Malignant neoplasm of breast 220312030 C50.919 sees breast surgeon regularlyn o discrete mass but asymmetry noted on left upper breastreco mmended she schedule f/u with breast surgeon for breast exam Pain of ri ght knee joint 5779570151 67973 M25.561 appt with ortho in [place] at work hurt kneegrandd 's wedding this weekend adn she was on her feet for 3 days Vitamin D deficiency 347 95246 E55.9 Health Concerns Section Related Observation LastModified by Organization Detai ls LastModified Time None Recorded Concern Status LastModified by Organization Details LastModified Time None Recorded Advance Directives Directive None Recorded Payers Insurance Date Sequence Insurance Name Policy Number Policy Orr Covered Member ID Orr Member ID Guarantor Name 08/10/2022 1 [facility] (PPO) [id number] Harsh Marshall [id number] Connie Marshall 07/27/2023 1 [employer] [id number] Connie Marshall [id number] Connie Marshall 07/27/2023 1 [facility] (PPO) [id number] Connie Marshall [id number] Connie Marshall 07/27/2023 1 [employer] [id number] Connie Marshall [id number] Connie Marshall 07/27/2023 2 [employer] Connie Marshall [id number] Connie Marshall Notes Date Note Type Note Provider Name and Address Organization Details Recorded Time 07/12/2022 text/html 1. Pt in office for f/u on wound to right upper arm from about a week and a half ago. 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 Pt states her second foot got caught on the fence and she landed on a fallen tree branch. States the branch punctured her right upper arm. Pt states she and cleaned the wound with peroxide and iodine, then applied butterfly bandage to keep the wound closed. Pt states it's been doing ok, but she is concerned that the area around the wound is getting hard and a little red. States the area is tender, but most of the bruising is gone. Pt states she is worried about infection b/c she is traveling this weekend and will be camping. DOLORES Charles [address] [facility], [facility] [address], [place], [address], [employer] 07/12/2022 18:26:21 08/11/2022 text/html ROS as noted in the HPI here for wellness, having knee pain after fall in Mar at work and then being on her feet for days for granddaughter's wedding. Would like to restart phentermine, did well on it in the past. Has felt asymmetry left breast compared to right over past few days. no chest pain or sob Anjali Mattson MD [address], [facility] [address], [place], [address], [employer] [facility] 08/12/2022 12:33:40 OBGyn Episode No OBEpisode recorded.
--- OUTSIDE RECORDS SUMMARY | 2024-11-25 00:42 | XMS_ITS | Encounter Summary ---
Author Organization [facility] Healthcare Address [address] [place] [address] Care Team Providers Care Casino Enforcement Agent Name Role Phone Anjali Mattson MD Primary Care Provider + Freddie PALUMBO MD, Cristino Valle Unavailable Charissa Raymundo NP Primary Care Provider [phone] Angel Montes De Oca MD Unavailable [phone] Encounter Details Date Type Department Care Team (Late st Contact Info) Description 08/13/2018 Telephone [facility] Radiology [address] [place] [address] Nasim Correa Social History Tobacco Use Types Packs/Day Years Used Date Smoking Tobacco: Never Smokeless Tobacco: Never Alcohol Use Standard Drinks/Week Comments Yes 0 (1 standard drink = 0.6 oz pur e alcohol) couple drinks a month Comments No Sex and Gender Information Value Date Recorded Sex Assigned at Not on file Legal Sex Female 3:04 PM FRONT DESK CLERK Gender Identity Female 02/26/2019 4:52 PM FRONT DESK CLERK Sexual Orientation Not on file documented as of this encounter Plan of Treatment Not on file documented as of this encounter Visit Diagnoses Not on filedocumented in this encounter Care Teams Casino Enforcement Agent Relationship Specialty Start Date End Date Anjali Mattson MD PCP - General 11/02/17 01/31/24 Charissa Raymundo NP [address] [facility] [address] [place] [address] PCP - General Family Medicine 02/01/24 Cristino Frazier II, MD Surgeon Plastic Surgery 02/26/18 01/31/24 Angel Montes De Oca MD [address] [facility] [address] [place] [address] Referring Physician Orthopedic Surgery 02/01/24 documented as of this encounter
--- OUTSIDE RECORDS SUMMARY | 2024-11-25 00:42 | XMS_ITS | Encounter Summary ---
Author Organization [facility] Address [address] [place] [address] Care Team Providers Care Review Analyst Name Role Phone Jean Marie Churchill MD, Ginny Dong Primary Care Provider Elicia vailable Encounter Details Date Type Department Care Team (Latest Contact Info) Description 02/17/2006 Outpatient Historical HIS [facility] Ginny Dubose Jr., MD NO ADDRESS ON FILE Other Screening Mammogram (Primary Dx) Social History Tobacco Use Types Packs/Day Years Used Date Smoking Tobacco: Never Assessed Comments Unknown Sex and Gender Information Value Date Recorded Sex Assigned at Not on file Legal Sex Female 3:53 AM VOLUNTEER SERVICES COORDINATOR Gender Identity Not on file Sexual Orientation Not on file documented as of this encounter Plan of Treatment Not on file documented as of this encounter Visit Diagnoses Diagnosis Other screening mammogram- Primary documented in this encounter Care Teams Review Analyst Relationship Specialty Start Date End Date Ginny Aj Jr., MD NO ADDRESS ON FILE PCP - General 02/19/03 documented as of this encounter
--- OUTSIDE RECORDS SUMMARY | 2024-11-25 00:42 | XMS_ITS ---
Author Organization [facility] Address [address] [place] [address] Care Team Providers Care Set Illustrator Name Role Phone Charissa Raymundo NP Primary Care Provider [phone] Angel Montes De Oca MD Unavailable [phone] Active Problems Problem Noted Date Diagnosed Date Pain in the shoulder 11/13/2024 Pre-op exam 11/13/2024 Chest pain 04/09/2024 Assessment & Plan (04/09/2024 9:40 AM LEHR TENDER): EKG slightly changed from 1 month ago--frequent PVC's new, low voltage new. With symptoms, will be safe and get stress test. ASCVD risk score 7.7%. Palpitations may be contributing to sx, will need to consider MCT monitor. Hold Phentermine. Screening for colon cancer 02/08/2024 Arthralgia of right knee 08/11/2022 Vitamin D deficiency 08/11/2022 Puncture wound of right upper arm 07/12/2022 History of right breast cancer 03/16/2020 Overview (03/16/2020): Added automatically from request for surgery [id number] Breast asymmetry 02/14/2019 Overview (02/14/2019): Added automatically from request for surgery [id number] Scar contracture 02/14/2019 Overview (02/14/2019): Added automatically from request for surgery [id number] Bronchitis 01/08/2019 Cough 01/08/2019 Dysuria 01/08/2019 Knee pain 01/08/2019 Assessment & Plan (02/01/2024 4:17 PM LEHR TENDER): In need of knee replacement, needs to lose about 20 lbs first though per specialist. Will get updated labs, can trial Meloxicam if renal function in good shape. Shoulder pain 01/08/2019 Malignant neoplasm of breast 06/18/2018 Assessment & Plan (02/01/2024 4:16 PM LEHR TENDER): Patient has completed her 5 year surveillance and has been release from specialist. Malignant neoplasm of female breast 06/18/2018 History of breast cancer 03/12/2018 Overview (03/12/2018): Added automatically from request for surgery [id number] Wasp sting 10/06/2016 NAFLD (nonalcoholic fatty liver disease) 014 Overview (01/08/2019): Overview: Fat infilitration of MRCP done to evaluate for presence of retained CBD stone GERD (gastroesophageal reflux disease) 3 Assessment & Plan (02/01/2024 4:15 PM LEHR TENDER): Stable on Omeprazole 10 mg daily Obesity [...]
--- OUTSIDE RECORDS SUMMARY | 2024-11-25 00:42 | XMS_ITS | Clinical Summary ---
Author Organization [facility] Address [address] [place] [address] Care Team Providers Care Manager Long Term Care Name Role Phone Charissa Raymundo NP Primary Care Provider [phone] Angel Montes De Oca MD Unavailable [phone] Allergies No known active allergies Medications DEXILANT [...] 6 (six) hours 30 tablet 1 Active HYDROcodone-paul taminophen (NORCO) 5-325 mg per tabletIndicatio [...] for constipation 4 tablet 4 Active glucosam-chondr -uwz9-E6-T-olivia 750-625-1,000 mg-mg-unit tablet Take by mouth Active meloxicam (MOBIC) 15 mg tablet Take 1 tablet (15 mg total) by mouth daily Active tirzepatide (ZEPBOUND SUBQ) Inject under the skin Active Active Problems Problem Noted Date Diagnosed Date Pain in the shoulder 11/13/2024 Pre-op exam 11/13/2024 Chest pain 04/09/2024 Assessment & Plan (04/09/2024 9:40 AM PATTERN ASSEMBLER): EKG slightly changed from 1 month ago--frequent [...] (03/16/2020): Added automatically from request for surgery [id number] Breast asymmetry 02/14/2019 Overview (02/14/2019): Added automatically from request for surgery [id number] Scar contracture 02/14/2019 Overview (02/14/2019): Added automatically from request for surgery [id number] Bronchitis 01/08/2019 Cough 01/08/2019 Dysuria 01/08/2019 Knee pain 01/08/2019 Assessment & Plan (02/01/2024 4:17 PM PATTERN ASSEMBLER): In need of knee replacement, needs to lose about 20 lbs first though per specialist. Will get updated labs, can trial Meloxicam if renal function in good shape. Shoulder pain 01/08/2019 Malignant neoplasm of breast 06/18/2018 Assessment & Plan (02/01/2024 4:16 PM PATTERN ASSEMBLER): Patient has completed her 5 year surveillance and has been release from specialist. Malignant neoplasm of female breast 06/18/2018 History of breast cancer 03/12/2018 Overview (03/12/2018): Added automatically from request for surgery [id number] Wasp sting 10/06/2016 NAFLD (nonalcoholic fatty liver disease) 014 Overview (01/08/2019): Overview: Fat infilitration of MRCP done to evaluate for presence of retained CBD stone GERD (gastroesophageal reflux disease) 3 Assessment & Plan (02/01/2024 4:15 PM PATTERN ASSEMBLER): Stable on Omeprazole 10 mg daily Obesity [...] mm hyperplastic rectal polyp. Repeat planned 10/2015 Encounters Date Type Department Care Team Description 11/14/2024 Telephone [facility] Medical [facility] Primary Care at [address] [address] Charissa Raymundo NP 11/14/[address] [facility] Primary Care at [address] [address] ProviderTrevor MD 11/13/2024 2:30 PM CDT Office Visit [facility] Primary Care at [address] [address] Charissa Raymundo NP Pre-op exam (Primary Dx) from Last 3 Months Immunizations Immunization Administration Dates Next Due Influenza, [...] points, staff should administer the PHQ-9) 0 11/13/2024 Personal Safety Answer Date Recorded Have you ever been in or are you currently in a harmful physical or emotional relationship or is someone making you feel afraid or unsafe? Denies 02/27/2024 Comments No Sex and Gender Information Value Date Recorded Sex Assigned at Not on file Legal Sex Female 3:04 PM PATTERN ASSEMBLER Gender Identity Female 02/26/2019 4:52 PM PATTERN ASSEMBLER Sexual Orientation Not on file Obstetrics History Last Filed Vital Signs Vital Sign Reading Time Taken Comments Blood Pressure 130/84 11/13/2024 2:34 PM CDT Pulse 90 11/13/2024 2:34 PM CDT Temperature 36.2 C (97.1 F) 11/13/2024 2:34 PM CDT Respiratory Rate 17 02/27/2024 9:18 AM PATTERN ASSEMBLER Oxygen Saturation 97% 11/13/2024 2:34 PM CDT Inhaled Oxygen Concentration - - Weight 97.5 kg (215 lb) 11/13/2024 2:34 PM CDT Height 167.6 cm (5' 6) 11/13/2024 2:34 PM CDT Body Mass Index 34.7 11/13/2024 2:34 PM CDT Plan of Treatment Health Maintenance Due Date Last Done Comments Osteoporosis Screening-Bone Density Scan 1955 DTaP/Tdap/Td Vaccine (1 - Tdap) 06/28/1967 Hepatitis B Screening 1974 Well Visit 65+ 2021 Covid-19 Vaccine (4 - 2024-2 6 season) 2024 12/17/2021, 05/19/2020, 04/27/2020 Influenza Vaccine (#1) 2024 , 11/26/2017, 11/25/2015 Depression Screening 11/13/2025 11/13/2024, 04/09/2024, 02/01/2024 Fall Risk Assessment 11/13/2025 11/13/2024, 02/27/2024, 02/01/2024 Colon Cancer Screening-Colonoscopy 02/26/2029 02/27/2024, 01/31/2021, 06/01/2017 Pneumococcal vaccine 65+ Completed 06/09/2023 Zoster Vaccine Completed 06/09/2023, 07/01/2022 Hepatitis C Screening Completed 02/26/2024 Colon Cancer Screening-CT Colonography Discontinued 02/27/2024 Colon Cancer Screening-DNA Stool Discontinued 02/26/19 Colon Cancer Screening-FIT Discontinued 02/27/2024 Colon Cancer Screening-Sigmoidoscopy Discontinued 02/13 Medical Devices Implanted Type Area Grocery Store Clerk Device Identifier Shelf Expiration Date Model / Serial / Lot Musculoskeletal Transplant [id number] Flexhd L20 Cm X W16 Cm Hydrate; Pliable Thk.8-1.7 Mm; Thick Graft - [id number] - [id number] Implanted:Qty: 1 on 01/12/2018 by Cristino Frazier II, MD at [facility] Other - see comments Left: Breast Musculoskeletal Transplant 03/17/2020 [id number] / [id number] / 0 Description:Flex HD Musculoskeletal Transplant [id number] Flexhd L20 Cm X W16 Cm Hydrate; Pliable Thk.8-1.7 Mm; Thick Graft - [id number] - [id number] Implanted:Qty: 1 on 01/12/2018 by Cristino Frazier II, MD at [facility] Other - see comments Right: Breast Musculoskeletal Transplant 03/17/2020 [id number] / [id number] / 0 Description:Flex HD [employer] Ssx-650 Natrelle Inspira Smooth Shell Surface Extra Full Profile Implant Latex Free - [id number] - [id number] Implanted:Qty: 1 on 10/31/2018 by Cristino Frazier II, MD at [facility] Right: Breast [employer] [id number] 05/28/2023 SSX-650 / [id number] / [employer] Ssx-650 Natrelle Inspira Smooth Shell Surface Extra Full Profile Implant Latex Free - [id number] - [id number] Implanted:Qty: 1 on 10/31/2018 by Cristino Frazier II, MD at [facility] Left: Breast [employer] [id number] 06/25/2023 SSX-650 / [id number] / Explanted Type Area Grocery Store Clerk Device Identifier Shelf Expiration Date Model / Serial / Lot [employer] 133mx-15-T -Natrelle Biocell Magna-Site [id number] Style 133mx With Tab Breast - [id number] - [id number] Implanted:Qty : 1 on 01/12/2018 by Cristino Frazier II, MD at [facility] Explanted:Qty : 1 on 03/13/2018 at [facility] Other - see comments Left: Breast [employer] 03/29/2021 133MX-15- T / [id number] / 0 Description:Tissue Secondary History Teacher [employer] 133mx-15-T -Natrelle Biocell Magna-Site [id number] Style 133mx With Tab Breast - [id number] - [id number] Implanted:Qty : 1 on 01/12/2018 by Cristino Frazier II, MD at [facility] Explanted:Qty : 1 on 03/13/2018 at [facility] Other - see comments Right: Breast [employer] 11/06/2021 133MX-15- T / [id number] / 0 Description:Tissue Secondary History Teacher [employer] 133mx-14 Natrelle Biocell Magna-Site [id number] Style 133mx Textured Breast P - [id number] - [id number] Implanted:Qty : 1 on 03/13/2018 at [facility] Explanted:Qty : 1 on 10/31/2018 by Cristino Frazier II, MD at [facility] Left: Breast [employer] 06/06/2021 133MX-14 / [id number] / [employer] 133mx-14 Natrelle Biocell Magna-Site [id number] Style 133mx Textured Breast P - [id number] - [id number] Implanted:Qty : 1 on 03/13/2018 at [facility] Explanted:Qty : 1 on 10/31/2018 by Cristino Frazier II, MD at [facility] Right: Breast [employer] 09/15/2021 133MX-14 / [id number] / Procedures Procedure Name Priority Date/Time Associated Diagnosis Comments HEMOGLOBIN A1C Routine 11/14/2024 8:55 AM CDT GLUCOSE Routine 11/14/2024 8:54 AM CDT CMP Routine 11/14/2024 8:53 AM CDT CBC WITH DIFFERENTIAL Routine 11/14/2024 8:49 AM CDT ECG 12-LEAD Routine 11/13/2024 3:31 PM CDT Pre-op exam COLONOSCOPY 02/27/2024 8:23 AM PATTERN ASSEMBLER HEPATITIS C ANTIBODY Routine 02/26/2024 11:02 AM PATTERN ASSEMBLER Encounter for hepatitis C screening test for low risk patient from Last 3 Months or Most Recently Relevant to Health Maintenance Results * Hemoglobin A1c (11/14/2024 8:55 AM CDT) Blood us Historical Provider LAB BLOOD ORDERABLES Melisa l Result EXTERNAL LAB * Glucose (11/14/2024 8:54 AM CDT) us Historical Provider LAB BLOOD ORDERABLES Melisa l Result EXTERNAL LAB * CMP (11/14/2024 8:53 AM CDT) Historical Provider LAB BLOOD ORDERABLES Melisa l Result Performing Organization Address City/[facility] Co de Phone Number EXTERNAL LAB * CBC with Differential (11/14/2024 8:49 AM CDT) Historical Provider LAB BLOOD ORDERABLES Melisa l Result Performing Organization Address [facility] Co de Phone Number EXTERNAL LAB * ECG 12-LEAD (11/13/2024 3:31 PM CDT) Narrative Charissa Raymundo NP - 11/13/2024 3:31 PM CDT Charissa Raymundo NP 11/13/2024 3:32 PM ECG 12 lead Date/Time: 11/13/2024 3:31 PM Performed by: Charissa Raymundo NP Authorized by: Charissa Raymundo NP Comparison: compared with previous ECG Rhythm: sinus rhythm Rate: normal QRS axis: normal ST Segments: ST segments normal T Waves: T waves normal Clinical impression: low voltage Charissa Raymundo NP ECG ORDERABLES Edited Result - Final * Colonoscopy (02/27/2024 8:23 AM PATTERN ASSEMBLER) Anatomical Region Laterality Modality Other Narrative Procedure Note Jv Clemente MD - 02/27/2024 8:23 AM CST [facility] GI ENDOSCOPY Patient Name: Connie Marshall Procedure Date: 02/27/2024 8:23 AM Date of : 1955 Admit Type: Outpatient Age: 68 Gender: Female Attending MD: Jv Clemente M.D. Room: [facility] ENDOSCOPY ROOM 06 Note Status: Finalized Procedure: [...] On: 02/27/2024 8:23 AM Recognized by the [employer] for promoting quality in endoscopy us Jv Clemente MD ENDOSCOPY PROCEDURES Final Resul t * Hepatitis C antibody Blood (02/26/2024 11:02 AM PATTERN ASSEMBLER) Hep C Ab Nonreactive Nonreactive Comment: Interpretive [...] on 2019. Blood 02/26/2024 11:0 2 AM PATTERN ASSEMBLER 02/26/2024 5:56 PM PATTERN ASSEMBLER Charissa Raymundo NP LAB MICROBIOLOGY - GENERAL ORDER ZELDA Final Result [address] Department [place] [address] from Last 3 Months or Most Recently Relevant to Health Maintenance Insurance Luminary Micro ACCESS [employer] ACCESS CHOICE [place]osk [employer] [facility] MED[facility] ADVANTAGE [facility] Address: [address] [address] [place] [address] Advance Directives For more information, please contact: [phone] * Full Code (Latest Code Status on File) Date Activated Date Inactivated Comments 08/27/2018 8:38 AM 08/27/2018 1:53 PM * Full Code Date Activated Date Inactivated Comments 08/17/2018 9:53 AM 08/17/2018 3:53 PM * Full Code Date Activated Date Inactivated Comments 01/12/2018 3:58 PM 01/14/2018 3:20 AM Care Teams Manager Long Term Care Relationship Specialty Start Date End Date Charissa Raymundo NP [address] [facility] [address] [place] [address] PCP - General Family Medicine 02/01/24 Angel Montes De Oca MD [address] [facility] [address] [place] [address] Referring Physician Orthopedic Surgery 02/01/24
--- OUTSIDE RECORDS SUMMARY | 2024-11-25 00:42 | XMS_ITS | Clinical Summary ---
Author Organization [facility] field Address [address] [place] [address] Phone Care Team Providers Care Boarding Kennel Or Cattery Operator Name Role Phone Jean Marie Churchill MD, [...] on file Legal Sex Female 3:53 AM DIRECTOR STAFFING Gender Identity Not on file Sexual Orientation [...] AM CDT Narrative 05/29/2007 6:54 PM CDT [facility] [address] [place], [place] [address] Admit Date: 05/29/2007 MARILYNCONNIE Sex: F Admit Prov: VALENTÍN ROJORYLEY Dong Date: 1955 Primary Care Prov: MOUNA VARINDER Early CMRN: [id number] Room: [facility] SSN: [id number] IMAGING SERVICES Ordering Prov: REMEDIOS ROJO Accession Number: [id number] Interpretation BILATERAL SCREENING DIGITAL MAMMOGRAMS WITH COMPUTER [...] Procedure Note Izaiah Rangel MD - 05/29/2007 [facility] [address] [place], [place] [address] Admit Date: 05/29/2007 CONNIE MARSHALL Sex: F Admit Prov: REMEDIOS ROJO Date: 1955 Primary Care Prov: VARINDER FREIRE CMRN: [id number] Room: [facility] SSN: [id number] IMAGING SERVICES Ordering Prov: REMEDIOS ROJO Letitia [...] Most Recently Relevant to Health Maintenance Insurance [facility] BLUE ACCESS/TRUE BLUE PPO Advance Directives For more information, please contact: [phone] * Full Code (Latest Code Status on File) Date Activated Date Inactivated Comments 06/01/2017 9:50 AM 06/01/2017 1:25 PM * Full Code Date Activated Date Inactivated Comments 01/15/2013 10:08 AM 01/15/2013 2:28 PM Care Teams Boarding Kennel Or Cattery Operator Relationship Specialty Start Date End Date Remedios Rojo Jr., MD NO ADDRESS ON FILE PCP - General 02/19/03
--- OUTSIDE RECORDS SUMMARY | 2024-11-25 00:42 | XMS_ITS | Encounter Summary ---
Author Organization [facility] Address [address] [place] [address] Care Team Providers Care Pad Assembler Name Role Phone Jean Marie Churchill MD, Ginny Dong Primary Care Provider Elicia vailable Encounter Details Date Type Department Care Team (Latest Contact Info) Description 03/20/2004 Outpatient Historical HIS [facility] RAJ Aj Jr., Ginny Dong MD NO ADDRESS ON FILE SCREENING MAMM-MAILG NEOPL-OTHER (Primary Dx) Social History Tobacco Use Types Packs/Day Years Used Date Smoking Tobacco: Never Assessed Comments Unknown Sex and Gender Information Value Date Recorded Sex Assigned at Not on file Legal Sex Female 3:53 AM SCHOOL PHYSICAL THERAPIST Gender Identity Not on file Sexual Orientation Not on file documented as of this encounter Plan of Treatment Not on file documented as of this encounter Visit Diagnoses Diagnosis Other screening mammogram- Primary documented in this encounter Care Teams Pad Assembler Relationship Specialty Start Date End Date Ginny Aj Jr., MD NO ADDRESS ON FILE PCP - General 02/19/03 documented as of this encounter
--- OUTSIDE RECORDS SUMMARY | 2024-11-25 00:42 | XMS_ITS | Encounter Summary ---
Author Organization [facility] Address [address] [place] [address] Care Team Providers Care Data Entry Manager Name Role Phone Jean Marie Churchill MD, Ginny Dong Primary Care Provider Elicia vailable Encounter Details Date Type Department Care Team (Latest Contact Info) Description 02/19/2003 Outpatient Historical HIS [facility] RAJ Aj Jr., Ginny Dong MD NO ADDRESS ON FILE SCREENING MAMM-MAILG NEOPL-OTHER (Primary Dx) Social History Tobacco Use Types Packs/Day Years Used Date Smoking Tobacco: Never Assessed Comments Unknown Sex and Gender Information Value Date Recorded Sex Assigned at Not on file Legal Sex Female 3:53 AM RAILROAD CAR REPAIRMAN Gender Identity Not on file Sexual Orientation Not on file documented as of this encounter Plan of Treatment Not on file documented as of this encounter Visit Diagnoses Diagnosis Other screening mammogram- Primary documented in this encounter Care Teams Data Entry Manager Relationship Specialty Start Date End Date Ginny Aj Jr., MD NO ADDRESS ON FILE PCP - General 02/19/03 documented as of this encounter
--- OUTSIDE RECORDS SUMMARY | 2024-11-25 00:42 | XMS_ITS | Encounter Summary ---
Author Organization [facility] Address [address] [place] [address] Care Team Providers Care Pewter Fabricator Name Role Phone Jean Marie Churchill MD, Ginny Dong Primary Care Provider Leicia vailable Encounter Details Date Type Department Care Team (Latest Contact Info) Description 05/29/2007 Outpatient Historical HIS [facility] RAJ Rojo Jr., Ginny Dong MD NO ADDRESS ON FILE Other Screening Mammogram Social History Tobacco Use Types Packs/Day Years Used Date Smoking Tobacco: Never Assessed Comments Unknown Sex and Gender Information Value Date Recorded Sex Assigned at Not on file Legal Sex Female 3:53 AM SOFTWARE ENGINEER BACKEND Gender Identity Not on file Sexual Orientation [...] AM CDT Narrative 05/29/2007 6:54 PM CDT [facility] [address] [place], [place] [address] Admit Date: 05/29/2007 GRZEGORZ MARSHALL Sex: F Admit Prov: GINNY ROJO Date: 1955 Primary Care Prov: VARINDER FREIRE CMRN: [id number] Room: [facility] SSN: [id number] IMAGING SERVICES Ordering Prov: GINNY ROJO Accession Number: [id number] Interpretation BILATERAL SCREENING DIGITAL MAMMOGRAMS WITH COMPUTER [...] Procedure Note Izaiah Rangel MD - 05/29/2007 [facility] [address] [place] [place], [place] [address] Admit Date: 05/29/2007 GRZEGORZ MARSHALL Sex: F Admit Prov: GINNY ROJO Date: 1955 Primary Care Prov: VARINDER FREIRE CMRN: [id number] Room: [facility] SSN: [id number] IMAGING SERVICES Ordering Prov: GINNY ROJO Interpretation [...] mammogram documented in this encounter Care Teams Pewter Fabricator Relationship Specialty Start Date End Date Ginny Rojo Jr., MD NO ADDRESS ON FILE PCP - General 02/19/03 documented as of this encounter
--- OUTSIDE RECORDS SUMMARY | 2024-11-25 00:42 | XMS_ITS | Clinical Summary ---
Author Organization [facility] Address [facility] [place] [address] Care Team Providers Care Medication Reconciliation Technician Name Role Phone Unavailable Primary Care Provider [...] Vaccine ( - 2023-2 5 season) 2024 Influenza Adult (#1) 2024 RSV Immunization or 60+ Years (1 [...]
[2024-11-25] MEDS: ACETAMINOPHEN 500 MG TABLET 1000 MG PO (06:30)
[2024-11-25] MEDS: LACTATED RINGERS 1,000 ML 30 ML IV CONT ×2 (06:45→11:10)
[2024-11-25] MEDS: VANCOMYCIN 1,500 MG/NS 500 ML 1,500 MG/500 ML BAG 250 MG IVPB (06:50)
[2024-11-25] MEDS: TRANEXAMIC ACID 1,000MG/ISO100 1,000 MG/100 ML BAG 200 MG IVPB (06:50)
--- NOTE | 2024-11-25 07:11 | PM.IMHP ---
H&P: HPI History of Present Illness Date/Time: 11/25/24 07:11 Chief Complaint: Left and right knee pain Narrative: HPI Comments Details: Patient returns. She the had a cortisone shot both knees 2 months is this shot gave great relief on the right knee again but the left knee has been problematic for she is starting quite a bit pain. The previous injection in her left knee only gave her 2 months of relief and the final month was quite severe and meloxicam did not help. She complains that her knee feels unstable and she is fearful it will give way. If she twists on it she has severe pain. She has undergone 2 arthroscopic meniscus trimming so on the right knee 1 on the left knee in the past. She takes meloxicam off and on. She uses it primarily the month prior to her cortisone injection. She uses hydrocodone occasionally if her knee keeps her from sleeping. She has been working hard to lose weight. She has been taking Mounjaro injections to lose weight and has been very helpful. She is 5 ft 5 in in height. On February 23 of this year she weighed 256 lb with a BMI of 41.3. Today she weighs 211 lb which represents a 45 lb weight loss in her BMI is down to 35.1. She feels she is otherwise in excellent health. She has never smoked she has no history of any heart problems or shortness of breath. Patient has been considering left knee replacement and has decided that she would like to proceed with that. Her previous x-rays were reviewed which suggest at least moderately severe medial compartment osteoarthritis in both knees. X-rays X-rays today Stork views two views of each knee obtained today in the office and demonstrate on the left knee: The Advanced [id number] medial compartment osteoarthritis with suggestion of some bone wear medial margin of medial tibial plateau and distraction of the lateral compartment joint space to 9 mm. There is a 6 mm bony ossicle at the medial margin medial tibial plateau which I believe represents a fractured marginal osteophyte which does involve a little bit of the actual margin of medial to plateau large medial femoral osteophyte noted. Anatomic axis varus alignment 2? varus. The very similar pattern noted in the right knee but less severe as there remains 1 mm of medial joint space narrowing on the AP stork view right knee. Similar distraction of the lateral compartment joint space which measures 9.5 mm. Prominent medial tibial and femoral osteophyte noted. Physical examination On exam today she is a pleasant female in no acute distress. She is alert and oriented. She walks with minimal limp today. She appears younger than her stated age. She is 5 5 in night 211 lb BMI of 35.1. Left knee range of motion is 0-140 degrees. She has normal stability anterior to posterior and varus valgus. She did not have any obvious lateral laxity on exam today. She had a trace effusion. She had moderately severe medial joint line tenderness and pain with patellofemoral grind. No lateral joint line tenderness. She had full range of motion of left hip without discomfort. Negative Stinchfield maneuver. Five 5 abduction strength. Greater trochanter and iliotibial band nontender. 2+ dorsalis pedis pulse palpable absent posterior tibial. Normal sensation skin looks normal no lower extremity edema. Patient has range of motion of the right knee full extension to 140? also [facility] Past Medical History Medical History Primary osteoarthritis of right knee Surgical History Surgical History History of tooth extraction H/O breast reconstruction (~2019) H/O total mastectomy (~2018) H/O arthroscopic knee surgery Tristan knee Family History Family History Other Family history of malignant neoplasm Social History Social History (Updated 10/25/24 @ 09:20 by Bruna Diane CMA) Smoking status: Never smoker Second hand tobacco smoke exposure: Yes Alcohol intake: current Alcohol use details: 2 per month Substance use type: painkillers Other substance usage details: occasional hydrocodone if needed Do You Feel Safe in your Home?: Yes Lack of Transportation: No Lack of Food: Never True Current Housing: I Have Housing Concerned About Future Housing: No Difficulty Paying Gas/Electric Bills: No Difficulty Paying for Meds: No Currently Unemployed: No Education: High School Diploma/GED Difficulty w/ Childcare or Family Care: No Living arrangements: with family Additional living arrangements comments: Spiritual care concerns: No Meds Home Medications and Allergies Home Medications ?Medication ?Instructions ?Recorded ?Confirmed ?Type [id number] 1 tablet PO DAILY 02/26/24 11/25/24 History 750 mg-100 mg-125 mg-1.65 mg tablet (Glucosamine Chondroit Complx Advan) meloxicam 15 mg tablet 15 mg PO DAILY #30 tabs 02/26/24 11/25/24 Rx multivitamin (Daily Multi-Vitamin 1 tablet PO DAILY 02/26/24 11/25/24 History tablet) omeprazole 20 mg capsule,delayed 20 mg PO DAILY 02/26/24 11/05/24 History release hydrocodone 5 mg-acetaminophen 325 1 tablet PO Q4H PRN pain #30 tabs 08/13/24 11/25/24 Rx mg tablet tirzepatide 7.5 mg/0.5 mL 7.5 mg subcut WEEKLY 10/25/24 11/25/24 History subcutaneous pen injector (Mounjaro) ascorbic acid (vitamin C) 250 mg 250 mg PO DAILY 11/05/24 11/25/24 History tablet (Vitamin C) vitamin E 200 unit capsule 45 mg PO DAILY 11/05/24 11/25/24 History Allergies Allergy/AdvReac Type Severity Reaction Status Date / Time No Known Allergies Allergy Verified 11/05/24 08:02 Assessment and Plan Assessment and plan (1) Primary localized osteoarthritis of both knees: Code(s): M17.0 - Bilateral primary osteoarthritis of knee Status: Acute Plan Assessment plan The patient has advanced medial compartment osteoarthritis left knee with insufficiency fracture medial margin medial osteophyte medial tibial plateau and she no longer gets satisfactory relief from cortisone shots and meloxicam. She has worked hard to lose weight has lost 45 lb in the last 8 months but continues to have quite a bit of symptoms in left knee along the medial joint line.. The right knee gets very good relief from the cortisone injections. She would like to schedule left total knee replacement and another cortisone shot of the right knee. Her injection is where last on 08/23/2024 and she has been scheduled for surgery on 11/25/2024 for left total knee arthroplasty and cortisone shot in the right knee. I discussed knee replacement with her in detail. I explained the recovery process in the pain involved the need to work on range of motion to prevent stiffness. 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 I have discussed risks of surgery with and in detail. Explained the be numbness lateral to the incision of patients have difficulty kneeling after knee replacement. Risk of having more prolonged anterior knee sensitivity was explained. Risk of infection discussed. She has dentures in the upper draw and her lower teeth are in good condition. Need for prophylactic antibiotics before dental work was explained and the need to be vigilant about any bacterial infections was explained. Risk of DVT was discussed. She has no personal or family history of DVT. I explained my preference for using Eliquis for 2 weeks followed by baby aspirin twice daily for 4 weeks for DVT prophylaxis. Risk of stiffness, instability, ligament injury, fracture, component loosening or component wear and need for revision surgery explained. Risk of nerve injury bleeding and medical complications such as heart attack stroke pulmonary embolism and were explained in detail. We would want her to see Dr. Raymundo before surgery for preoperative medical evaluation. We will want her to stop the Mounjaro 1 week before surgery in the meloxicam 1 week for before surgery and also the glucosamine chondroitin sulfate 1 week before surgery. I answered all of her questions today. We will proceed as discussed. She was given the Ortho info handout on total knee arthroplasty for her review.
--- NOTE | 2024-11-25 07:15 | WPDHPUPDATE1 ---
History and Physical Update Update Date/Time: 11/25/24 07:15 History and Physical has been reviewed, including an updated exam of the patient. There are NO changes in the patient's condition. Risks, benefits, and alternatives have been discussed and questions answered. Patient agrees to proceed with procedure.
--- NOTE | 2024-11-25 07:21 | WPDANESEPPF ---
Anes - Initial Pre Proc Eval Procedure: Operation Date: 11/25/24 07:30 Proposed Procedures p Left Total Knee Arthroplasty, Cortisone Injection Right Knee - Pantera Jean MD Date/Time: 11/25/24 07:21 Surgeon: Pantera Jean MD Pre Op Diagnosis: O A Both Knees Patient Data Age: 69 Gender: F Height: 1.65 m Weight: 98.8 kg Last Vital Signs Temp 98.5 F 11/05/24 08:08 Pulse 86 11/05/24 08:08 Resp 16 11/05/24 08:08 BP 152/86 H 11/05/24 08:08 Pulse Ox 99 11/05/24 08:08 O2 Del Method Room Air 11/05/24 08:08 Allergies Allergy/AdvReac Type Severity Reaction Status Date / Time No Known Allergies Allergy Verified 11/05/24 08:02 Home Medications ?Medication ?Instructions ?Recorded ?Confirmed ?Type [id number]-[id number]-hyal 1 tablet PO DAILY 02/26/24 11/25/24 History 750 mg-100 mg-125 mg-1.65 mg tablet (Glucosamine Chondroit Complx Advan) meloxicam 15 mg tablet 15 mg PO DAILY #30 tabs 02/26/24 11/25/24 Rx multivitamin (Daily Multi-Vitamin 1 tablet PO DAILY 02/26/24 11/25/24 History tablet) omeprazole 20 mg capsule,delayed 20 mg PO DAILY 02/26/24 11/05/24 History release hydrocodone 5 mg-acetaminophen 325 1 tablet PO Q4H PRN pain #30 tabs 08/13/24 11/25/24 Rx mg tablet tirzepatide 7.5 mg/0.5 mL 7.5 mg subcut WEEKLY 10/25/24 11/25/24 History subcutaneous pen injector (Mounjaro) ascorbic acid (vitamin C) 250 mg 250 mg PO DAILY 11/05/24 11/25/24 History tablet (Vitamin C) vitamin E 200 unit capsule 45 mg PO DAILY 11/05/24 11/25/24 History Patient hx anesthesia problems: post op nausea/vomiting Family hx anesthesia problems: none Results Review: All pre-operative results and documents have been reviewed as part of the pre-operative evaluation. [facility] Past Medical History Medical History Primary osteoarthritis of right knee Surgical History Surgical History History of tooth extraction H/O breast reconstruction (~2019) H/O total mastectomy (~2018) H/O arthroscopic knee surgery Tristan knee Family History Family History Other Family history of malignant neoplasm Social History Social History (Updated 10/25/24 @ 09:20 by Bruna Diane CMA) Smoking status: Never smoker Second hand tobacco smoke exposure: Yes Alcohol intake: current Alcohol use details: 2 per month Substance use type: painkillers Other substance usage details: occasional hydrocodone if needed Do You Feel Safe in your Home?: Yes Lack of Transportation: No Lack of Food: Never True Current Housing: I Have Housing Concerned About Future Housing: No Difficulty Paying Gas/Electric Bills: No Difficulty Paying for Meds: No Currently Unemployed: No Education: High School Diploma/GED Difficulty w/ Childcare or Family Care: No Living arrangements: with family Additional living arrangements comments: Spiritual care concerns: No Anes - Eval Final PreProcedure Day of Procedure 11/25/24 07:21 Patient weight: obese Heart: regular rate and rhythm Lungs: clear to auscultation Airway: Mallampati scale class II Neurological: alert and oriented Last oral intake: >/= 8 hours ASA classification: III Emergent: no Anesthetic plan: proceed Anesthesia type and monitoring: general ETT and standard monitoring Results Review: All pre-operative results and documents have been reviewed as part of the pre-operative evaluation. Informed Consent: The patient's anesthetic plan and its attendant risks and benefits were discussed with the patient/family/POA. Questions were solicited and answers provided to the satisfaction of the patient/family/POA.
[2024-11-25] MEDS: ceFAZolin 2 GM in SODIUM CHLORIDE 0.9% IV 50 ML 100 ML IVPB ×3 (07:27→23:12)
[2024-11-25] MEDS: SCOPOLAMINE 1 MG PATCH 1 PATCH TRANSDERM (07:34)
[2024-11-25] MEDS: LIDOCAINE 1% LOCAL INJ 10 ML VIAL 5 ML INFILTRATE (07:40)
[2024-11-25] MEDS: SODIUM CHLORIDE 0.9% IV 37.7 ML, MORPHINE SULFATE INJ (*CRX) 2 MG, ROPivacaine HCL 1% 2... INFILTRATE (08:05)
[2024-11-25] MEDS: TRANEXAMIC ACID 1,000 MG/10 ML AMPUL 1000 MG IV PUSH (10:02)
[2024-11-25] MEDS: KETOROLAC 15 MG/ML VIAL (*BKC) 7.5 MG IV PUSH ×3 (10:02→23:11)
--- NOTE | 2024-11-25 10:59 | P.OP_ITS ---
Procedure Note - Detailed Date of Procedure 11/25/24 Pre-op Diagnosis O A Both Knees Post-op Diagnosis Same Procedure Performed Cortisone injection right knee, left total knee arthroplasty Surgeon Pantera Jean MD Client Service And Consulting Manager [facility] Anesthesia General Description of Procedure Patient was brought the operating room and general anesthesia was administered. She received 2 g of Ancef weight based vancomycin 1 g of TXA preoperatively. The right knee was prepped with ChloraPrep and 80 mg of Depo-Medrol and 4 cc of 1% lidocaine were injected into the right knee without difficulty. The left knee was prepped draped usual fashion. She had a little bit of hyperextension on the table. There was quite a bit of pseudolaxity present to varus and valgus stress. There is extra difficulty with the procedure due to her BMI of 36 with weight concentration in the region of the thigh knee and calf, which added approximately 30 minutes to the operation. Limb was exsanguinated and tourniquet elevated to 300 mmHg. A 7 in longitudinal midline incision was used on the left knee and a standard parapatellar arthrotomy utilized. Partial excision of infrapatellar fat pad was performed. Quadriceps synovectomy performed suprapatellar fat pad partially excised. The patella had mild spurring and localized chondromalacia which is the intact articular cartilage throughout 90% of the. I felt it was very appropriate for non resurfacing as it was small in size and somewhat thin. A minimal lateral facetectomy was performed. A guide carina was inserted on femoral canal after aspiration of canal contents, because of hyper extension we elected to resect 7 mm of bone from the distal femur at 5? anatomic axis valgus. This removed very little bone from the lateral femoral condyle because of her valgus aligned femur. Next the tibial plateau was cut. We a skim cut off the low point of the medial tibial plateau perpendicular to the axis of the tibia and this removed about 9.5 mm laterally. Alignment was reconfirmed. PCL was recessed. We did not perform a posterior capsule release because of her hyperextension. This could remnants were excised. At 90? the medial side accepted the 8 mm spacer on the lateral side a 14 mm spacer. Distal femoral sizing guide was applied set at 5? of external rotation which matched [place]ites[place] line. Posterior referencing pinholes were placed. The 62.5 vanguard cutting block utilized AP and chamfer cuts were made this gave a line to line fit medial to lateral with the anterior flange resting on the anterior cortex. The tibia was sized to 67. This came a mm from the edge posterolateral to anteromedial at proper rotation. This was punched and we trialed and found the inflection we were tight medially with the 10 insert and in extension we were very tight medially the lateral side booked open 2.5 mm. We then carefully removed the medial tibial plateau osteophyte without stripping the medial capsule as she did not have a significant varus deformity. With this accomplished on read trialing the flexion gap was balanced with 11 mm insert which allowed 2 mm of lateral and 2 mm of medial opening to varus and valgus stress at 90?. We were still quite tight in extension so I would additional 2 mm of bone was removed from the distal femur and chamfer cuts revisited. Residual bone proximal to the posterior femoral condyles of the trial component was removed and we read trialed. AP stability was appropriate with the 11 insert. The knee had a barely positive bounce with arthrotomy approximated with towel clips in no play medially. With the 10 insert I felt we were a little bit to lose to anterior posterior drawer at 90?. Additional 1 mm bone was removed the distal femur chamfer is revisit on the trialing the knee came out to full extension with negative bounce and with the arthrotomy approximated still no bounce for there is no hyperextension. In this position there was no play medially but bending the knee 5? we had a mm of play medially. We had about 3 mm opening laterally a 5?. [place] flexion was to approximately 115? limited mostly by soft tissues. Passive flexion was to 135 with no lift- off. Lug holes were drilled the distal femur. A tourniquet had been let down at 90 minutes and at this point we re-exsanguinated the limb re elevated the tourniquet to 300 mm mercury. Step drill was used to make multiple perforations in the distal femur and tibial plateau. Bone density was unusually good. Bony surfaces thoroughly irrigated and dried. Two batches of methylmethacrylate 1 with gentamicin powder, cement was immediately applied the size 67 vanguard tibial tray and then the size 62.5 left CR femoral component. Cement applied to the tibia pressurized tibial component fully seated cement applied the femur the femoral component fully seated the knee brought into close to full extension with a 12 mm 5 in 1 insert for cement pressurization tourniquet released total tourniquet time approximately 105 minutes. After cement hardening excess cement was sought for removed hemostasis was achieved we trialed the 11 insert had the same range of motion stability findings as above. Patellar tracking was suboptimal. She had an unusual amount of fat that was between the synovium and the lateral retinaculum between sizes we were starting to do a lateral retinacular release. With a rongeur we removed the fat tissue was was almost like a lipoma and with this tissue and the synovium removed with the retinaculum still intact, there was now central patellar tracking through range of motion. Lateral retinacular release therefore was not required. The real 11 insert was placed after thorough irrigation with antibiotic solution locked the locking pin range of motion stability patellar tracking reconfirmed. Local anesthetic cocktail injected into the periarticular soft tissues. Arthrotomy was closed with 2. Vicryl and 1. Unidirectional barbed Stratafix suture. Skin closed with 2 subcu Vicryl 3-0 subcuticular Monocryl and glue. EBL was 200 cc. There were no complications. Two additional g of Ancef 1 g TXA given time wound closure. She was transferred postop recovery room in stable condition. Attestation Student Attestation Left total knee arthroplasty, cortisone shot right knee
[2024-11-25] MEDS: fentaNYL CITRATE INJ (*CRX) 100 MCG/2 ML VIAL 25 MCG IV PUSH ×4 (11:51→12:03)
[2024-11-25] MEDS: ACETAMINOPHEN 325 MG TABLET 650 MG PO ×3 (12:51→19:58)
[2024-11-25] MEDS: oxyCODONE HCL (*CRX) 5 MG TAB IR PO ×3 (12:51→19:58)
--- NOTE | 2024-11-25 13:00 | ADMGEN ---
This patient, Connie Marshall, was admitted to 3 [facility] Surg Room 302-01. Patient/family oriented to hospital policies and general routines including ID bracelet, bed and alarms, visiting hours, pain management, procedures, bathroom and other care routines, personal items, smoking policy, room service/diet, and visiting hours. Information on how to activate the Rapid Response Team has been discussed. Patient/Family are encouraged to report perceived risks to care and to ask questions if they do not understand what they are told or what they should do. Report received from [facility] PACU
[2024-11-25] MEDS: ONDANSETRON INJ 4 MG/2 ML VIAL IV PUSH (13:51)
[2024-11-25] MEDS: SENNA/DOCUSATE SODIUM TABLET 2 TAB PO (16:07)
[2024-11-25] MEDS: PANTOPRAZOLE 40 MG TABLET PO (17:47)
[2024-11-25] MEDS: VANCOMYCIN HCL 1,000 MG in SODIUM CHLORIDE 0.9% IV 250 ML 250 MG IVPB (18:09)
[2024-11-26] VITALS: BP 108/62; PULSE 83; RESP 16; TEMP 36.7; O2SAT 97
[2024-11-26] MEDS: oxyCODONE HCL (*CRX) 5 MG TAB IR PO ×3 (01:18→08:08)
[2024-11-26] MEDS: ACETAMINOPHEN 325 MG TABLET 650 MG PO ×3 (01:18→08:07)
[2024-11-26 03:52] VITALS: BP 120/62; PULSE 78; RESP 16; TEMP 37.1; O2SAT 96
[2024-11-26 06:36] LABS: Hematocrit 34.5 % (37.0-47.0); Hemoglobin 11.5 g/dL (12.0-15.0); Immature Granulocyte Percent A 1.0 % (0-0.5); Lymphocytes Absolute Auto 1.24 K/mm3 (0.9-3.2); Mean Corpuscular HGB Conc 33.3 g/dl (32-36); Mean Corpuscular Hemoglobin 30.3 pg (26-34); Mean Corpuscular Volume 91.0 fl (80-100); Nucleated Red Blood Cells Absolute Auto 0.000 K/mm3 (0.0-0.012); Nucleated Red Blood Cells Perc 0.0 % (0.0-0.2); Platelet Count Result 240 k/mm3 (150-375); Red Blood Count 3.79 M/mm3 (4.2-5.4); White Blood Count 19.4 K/mm3 (4.5-10.0)
[2024-11-26] MEDS: ceFAZolin 2 GM in SODIUM CHLORIDE 0.9% IV 50 ML 100 ML IVPB (06:44)
[2024-11-26] MEDS: VANCOMYCIN HCL 1,000 MG in SODIUM CHLORIDE 0.9% IV 250 ML 250 MG IVPB (07:20)
[2024-11-26 07:59] VITALS: BP 119/67; PULSE 87; RESP 18; TEMP 37.9; O2SAT 95
[2024-11-26] MEDS: MULTIVITAMINS THERAPEUTIC TAB (*BKC) 1 TABLET PO (08:07)
[2024-11-26] MEDS: DOXYCYCLINE HYCLATE 100 MG TABLET PO (08:07)
[2024-11-26] MEDS: MELOXICAM 7.5 MG TABLET PO (08:08)
[2024-11-26] MEDS: SENNA/DOCUSATE SODIUM TABLET 2 TAB PO (08:08)
[2024-11-26] MEDS: APIXABAN 2.5 MG TABLET PO (08:08)
[2024-11-26] MEDS: ASCORBIC ACID 250 MG TABLET PO (08:09)
[2024-11-26 08:16] LABS: Anion Gap 7 mmol/L (4-12); Blood Urea Nitrogen 11 mg/dL (7-17); Calcium 8.3 mg/dL (8.4-10.2); Carbon Dioxide 24 mmol/L (22-30); Chloride 104 mmol/L (98-107); Estimated CRCL calculation 80 ml/min; Estimated Glomerular Filt Rate > 60; Glucose 132 mg/dL (65-110); Potassium 4.1 mmol/L (3.4-5.0); Sodium 135 mmol/L (137-145)
--- NOTE | 2024-11-26 09:00 | PM.PNORT ---
Progress Note: A&P Assessment and Plan (1) Status post total left knee replacement: Code(s): Z96.652 - Presence of left artificial knee joint Status: Acute Assessment and Plan: patient is postop day 1 after left total knee replacement. She feels she is doing very well. She has no pain in either knee today. She was up walking many times yesterday and had no difficulty. On exam there is no bloody drainage on the Mepilex dressing no swelling. She has intact sensation motor function in the left lower extremity. Hemoglobin is 11.5. White count is elevated due to the recent surgery. Sodium 135. Creatinine 0.67. Patient feels comfortable and feels she will be able to go home later this morning after physical therapy. I reviewed with her the importance of avoiding resting in the chair so she can keep the leg elevated above her heart to avoid excessive swelling and the importance of focusing on flexion and extension to avoid stiffness. Subjective Subjective Date/Time Seen: 11/26/24 09:00 Objective Data Vital Signs Vital Signs: Vital Signs - 24 hr 11/25/24 11:10 11/25/24 11:25 11/25/24 11:40 Temperature 36.2 C L Pulse Rate 94 84 86 Respiratory Rate 16 14 14 Blood Pressure 116/67 131/73 134/82 Pulse Oximetry 97 100 100 Oxygen Delivery Simple Face Mask Simple Face Mask Room Air Oxygen Flow Rate 6 6 11/25/24 11:55 11/25/24 12:10 11/25/24 12:30 Temperature 36.6 C Pulse Rate 85 83 83 Respiratory Rate 12 14 16 Blood Pressure 127/73 125/78 127/69 Pulse Oximetry 95 98 96 Oxygen Delivery Room Air Nasal Cannula Oxygen Flow Rate 2 11/25/24 12:45 11/25/24 13:05 11/25/24 13:15 Temperature 36.9 C 36.4 C L Pulse Rate 77 79 Respiratory Rate 16 16 Blood Pressure 125/68 119/70 Pulse Oximetry 95 94 Oxygen Delivery Room Air Oxygen Flow Rate 11/25/24 13:28 11/25/24 14:15 11/25/24 16:00 Temperature 36.8 C 37.8 C H Pulse Rate 87 89 Respiratory Rate 16 16 Blood Pressure 128/78 124/72 Pulse Oximetry 92 97 Oxygen Delivery Room Air Oxygen Flow Rate 11/25/24 20:00 11/26/24 00:00 11/26/24 03:52 Temperature 36.7 C 36.7 C 37.1 C Pulse Rate 84 83 78 Respiratory Rate 14 16 16 Blood Pressure 125/71 108/62 120/62 Pulse Oximetry 94 97 96 Oxygen Delivery Oxygen Flow Rate 11/26/24 07:59 Temperature 37.9 C H Pulse Rate 87 Respiratory Rate 18 Blood Pressure 119/67 Pulse Oximetry 95 Oxygen Delivery Oxygen Flow Rate Intake/Output Intake/Output: Intake & Output 11/23/24 11/24/24 11/25/24 11/26/24 23:59 23:59 23:59 23:59 Intake Total 1340 0 Balance 1340 0 Meds/Results Medications: Active Medications Generic Name Dose Route Start Last Admin Trade Name Freq PRN Reason Stop Dose Admin Acetaminophen 650 mg 11/25/24 13:00 11/26/24 08:07 Acetaminophen 325 Mg Tablet PO 650 mg Q4H RODERICK Administration Apixaban 2.5 mg 11/26/24 09:00 11/26/24 08:08 Apixaban 2.5 Mg Tablet PO 2.5 mg Q12HR RODERICK Administration Ascorbic Acid 250 mg 11/26/24 09:00 11/26/24 08:09 Ascorbic Acid 250 Mg Tablet PO 250 mg DAILY RODERICK Administration Doxycycline Hyclate 100 mg 11/26/24 09:00 11/26/24 08:07 Doxycycline Hyclate 100 Mg Tablet PO 12/08/24 08:59 100 mg Q12HR RODERICK Administration Meloxicam 7.5 mg 11/26/24 08:00 11/26/24 08:08 Meloxicam 7.5 Mg Tablet PO 7.5 mg DAILY@0800 RODERICK Administration Morphine Sulfate 2 mg 11/25/24 12:11 Morphine Sulfate (*Crx) 2 Mg/Ml Inj IV PUSH Q1H PRN Pain Rated 7-10 Multivitamins Therapeutic 1 tablet 11/26/24 09:00 11/26/24 08:07 Multivitamins Therapeutic Tab (*Bkc) PO 1 tablet DAILY RODERICK Administration Naloxone HCl 0.1 mg 11/25/24 12:11 Naloxone Hcl 0.4 Mg/Ml Vial IV PUSH Q2M PRN Opiate Reversal Ondansetron HCl 4 mg 11/25/24 12:11 11/25/24 13:51 Ondansetron Inj 4 Mg/2 Ml Vial IV PUSH 4 mg Q4H PRN Administration Nausea And Vomiting Oxycodone HCl 5 mg 11/25/24 12:11 11/26/24 08:08 Oxycodone Hcl (*Crx) 5 Mg Tab Ir PO 5 mg Q4H RODERICK Administration Oxycodone HCl 5 mg 11/25/24 12:11 Oxycodone Hcl (*Crx) 5 Mg Tab Ir PO Q4H PRN Pain Rated 7-10 Pantoprazole Sodium 40 mg 11/25/24 18:00 11/25/24 17:47 Pantoprazole 40 Mg Tablet PO 40 mg QPM RODERICK Administration Polyethylene Glycol 17 gm 11/26/24 09:00 11/26/24 08:11 Polyethylene Glycol 3350 17 Gm Powd.Pack PO 17 gm QAM RODERICK Administration Senna/Docusate Sodium 2 tab 11/25/24 17:00 11/26/24 08:08 Senna/Docusate Sodium Tablet PO 2 tab BID RODERICK Administration Radiology Results: ITS Impressions Knee X-Ray 11/25/24 14:45 IMPRESSION: 1. Left total knee arthroplasty, negative for postoperative purposes. Labs Labs: Laboratory Results - last 24 hr 11/26/24 05:31 WBC 19.4 H RBC 3.79 L Hgb 11.5 L D Hct 34.5 L MCV 91.0 MCH 30.3 MCHC 33.3 RDW 13.3 Plt Count 240 MPV 10.2 Immature Gran % (Auto) 1.0 H Neut % (Auto) 84.6 H Lymph % (Auto) 6.4 L Brewster % (Auto) 7.9 Eos % (Auto) 0.0 Baso % (Auto) 0.1 L Lymph # (Auto) 1.24 Brewster # (Auto) 1.5 H Eos # (Auto) 0.0 Baso # (Auto) 0.0 Abs Immat Gran (auto) 0.19 H Absolute Neuts (auto) 16.4 H Absolute Nucleated RBC 0.000 Nucleated RBC % 0.0 Sodium 135 L Potassium 4.1 Chloride 104 Carbon Dioxide 24 Anion Gap 7 BUN 11 Creatinine 0.67 L Estim Creat Clear Calc 80 Estimated GFR > 60 Glucose 132 H Calcium 8.3 L
== END 2024-11-26 10:40 | disposition home or self-care (01) ==
LOC: ANHSURGERY 05:58 → ANH3MEDSUR 12:31
PROVIDERS: PCP Nurse Practitioner Family; Visit Provider Orthopaedic Surgery
PROC: (CPT 27447; principal; 2024-11-25 07:30)
DX: M17.0 Bilateral primary osteoarthritis of knee (principal); M25.762 Osteophyte, left knee; M94.262 Chondromalacia, left knee; E66.9 Obesity, unspecified; Z68.36 Body mass index [BMI] 36.0-36.9, adult; Z79.891 Long term (current) use of opiate analgesic; Z79.85 Long-term (current) use of injectable non-insulin antidiabetic drugs; Z98.890 Other specified postprocedural states; Z80.9 Family history of malignant neoplasm, unspecified
CPT/HCPCS: 27447; 20610; 36415; 73560; 80048; 85025; 86850; 86900; 86901; 97110; 97116; 97161; 97165; 97530; 97535; J0690; A9270; C1713; C1776; J0166; J1010; J1100; J1171; J1885; J2003; J2250; J2270; J2405; J2704; J2795; J3010; J3290; J3373; J7050; J7120

== ENCOUNTER 2025-01-10 11:00 | Outpatient (RCR) | payer MEDICARE, SELFPAY ==
--- NOTE | 2024-12-05 10:29 | PCPTNOTE ---
pt called to cancel her appointment due to illness.
--- NOTE | 2024-12-05 18:50 | OPREHPOC ---
Outpatient Therapy Plan of Care This is a Multidisciplinary Plan of Care that may contain components documented by all disciplines (PT, OT, and ST.) PT Problem 1 PT Problem #1 Knowledge Deficit PT Goal 1 Goal / Goal Update Pt will perform return demo of Dr. Jean chair flexion/extension protocol with 90% accuracy with minimal cues. Target Visit 8 PT Problem 2 PT Problem #2 Impaired Range of Motion PT Goal 1 Goal / Goal Update Pt will demo atleast -5 active extension and 120 or more active flexion on L knee to improve foot clearance for safety with stairs and community ambulation. Target Visit 12 PT Problem 3 PT Problem #3 Impaired Gait PT Goal 1 Goal / Goal Update Pt will ambulate independently without assistive device and with normalized gait pattern with good weight shifting. Target Visit 12
--- NOTE | 2024-12-05 18:50 | PTOPEVAL1 ---
Assessment and note entered by Azeb Sahu, PT Evaluation Information Assessment Status Evaluation Onset Nov 25, 2024 Subjective Information Pt reports burning pain and increased stiffness in the mornings, uses a walker for support. states been doing exercises and able to hold the chair stretch for 1 minute x 5 reps at this time 3-4x/ day. Assessment PT Clinical Summary Pt presents to therapy s/p L TKA on 11/25/[address] Jean. Demos pain and guarding around surgical site, ROM and strength deficits and currently using 2WW for ambulation with significant antalgic gait pattern impacting her independent functional mobility requiring assistance from her with ADLs and driving. She will greatly benefit from skilled PT for pain reduction, rastafari to WNL active L knee ROM, improve overall strength, posture and balance, improve gait pattern in order to perform safe community ambulation without AD. Plan of Care Interventions Check Out for Orthotic/Prosthetic,Electrical Stimulation,Gait Training,Hot Pack/Cold Pack, Intermittent Compression Pump,Manual Therapy,Neuro Re-education,Patient/Caregiver Education, Therapeutic Activities,Therapeutic Exercise PT Services Indicated Yes Treatment Frequency and 2x/wk x 12 visits Duration These treatments will address the objective and functional deficits as defined above. The patient will be advanced safely and appropriately in order for the patient to progress towards his/her prior level of function. Additional exercises will be introduced and as well as a comprehensive home exercise program upon discharge, if needed, ?to ensure carryover of functional gains achieved in the clinic. This treatment plan has been reviewed and agreement upon by the patient.
--- NOTE | 2024-12-19 12:03 | PCPTNOTE ---
Called and cancelled not feeling well. per front office. AKS
--- NOTE | 2025-01-07 11:38 | PCPTNOTE ---
Pt cancelled, reason unknown per front office. AKS
--- NOTE | 2025-01-10 12:18 | PTOPDC ---
Assessment and note entered by Azeb Sahu, PT Evaluation Information Assessment Status Discharge Onset Nov 25, 2024 Subjective Information Pt reports that she is feeling good, walking without the walker anymore. States that Dr. Jean was pleased with her results during the last f/u appointment. Reported Pain Level Pain Score 1: Self Report Assessment PT Clinical Summary Pt received a total of 9 treatment sessions and demos excellent progress with therapy. She has achieved full active ROM and back to indep ambulation without AD. She is compliant with HEPs. She is agreeable to DC, Skilled PT not necessary at this time. Plan of Care PT Services Indicated No
== END 2025-01-13 09:33 | disposition home or self-care (01) ==
LOC: ANHPT 11:00
PROVIDERS: PCP Nurse Practitioner Family; Visit Provider Orthopaedic Surgery
DX: Z47.1 Aftercare following joint replacement surgery (principal); M17.12 Unilateral primary osteoarthritis, left knee; Z96.652 Presence of left artificial knee joint
CPT/HCPCS: 97014; 97110; 97116; 97140; 97161; 97530; 97750; G0283